=== PATIENT | male | born 1970 | race Two or more races ===

== ENCOUNTER 2018-11-09 13:08 | Inpatient (IN) | payer OTHER ==
[2018-11-09 13:49] VITALS: BMI 28.6
--- NOTE | 2018-11-09 21:19 | HP ---
CIWA Score Nausea/Vomitin (Vomitimg x 3) Muscle Tremors: 4-Moderate,w/Arms Extend Anxiety: 3 Agitation: 3 Paroxysmal Sweats: 3 Orientation: 1-Uncertain about Date Tacttile Disturbances: 0-None Auditory Disturbances: 0-None Visual Disturbances: 0-None Headache: 3-Moderate CIWA-Ar Total Score: 20 - Admission Criteria OASAS Guidelines: Admission for Medically Managed Detox: Requires at least one of the followin. CIWA greater than 12 2. Seizures within the past 24 hours 3. Delirium tremens within the past 24 hours 4. Hallucinations within the past 24 hours 5. Acute intervention needed for co occurring medical disorder 6. Acute intervention needed for co occurring psychiatric disorder 7. Severe withdrawal that cannot be handled at a lower level of care (continued vomiting, continued diarrhea, abnormal vital signs) requiring intravenous medication and/or fluids 8. Admission [facility] Chief Complaint: Alcohol withdrawal symptoms Allergies/Adverse Reactions: Allergies Allergy/AdvReac Type Severity Reaction Status Date / Time Fish Containing Products Allergy Verified 11/09/18 19:05 mayonnaise Allergy Verified 11/09/18 19:05 peanut Allergy Verified 11/09/18 19:05 turkey Allergy Verified 11/09/18 19:05 History of Present Illness: 48 years old male with a long history of alcohol dependence is seeking admission to detox. Patient has been to previous detox at [facility] and reports insignificant period of sobriety. He has medical history of hypertension, anxiety and depression. He denies suicide attempt and suicidal ideation at this time. His JENNI was 0.325 and rechecked at 9.12PM and is now 0.150. Patient reports feeling dizzy after vomiting. Fall and safety precaution initiated. Exam Limitations: No Limitations - Ebola screening Have you traveled outside of the country in the last 21 days: No Have you had contact with anyone from an Ebola affected area: No Have you been sick,other than usual withdrawal symptoms: No Do you have a fever: No - Review of Systems Constitutional: Chills, Loss of Appetite, Malaise, Changes in sleep EENT: reports: Sinus Pressure Respiratory: reports: No Symptoms reported Cardiac: reports: No Symptoms Reported GI: reports: Nausea, Poor Appetite, Poor Fluid Intake, Vomiting (x 3) : reports: No Symptoms Reported Musculoskeletal: reports: Joint Pain Integumentary: reports: Dryness, Flushing Neuro: reports: Headache, Tremors Endocrine: reports: Flushing Hematology: reports: No Symptoms Reported Psychiatric: reports: Anxious, Depressed Other Systems: Reviewed and Negative Patient History - Patient Medical History Hx Anemia: No Hx Asthma: No Hx Chronic Obstructive Pulmonary Disease (COPD): No Hx Cancer: No Hx Cardiac Disorders: No Hx Congestive Heart Failure: No Hx Hypertension: Yes (Amlodipine) Hx Hypercholesterolemia: No Hx Pacemaker: No HX Cerebrovascular Accident: No Hx Seizures: No Hx Diabetes: No Hx Gastrointestinal Disorders: No Hx Genitourinary Disorders: No Hx Sexually Transmitted Disorders: No Hx Renal Disease (ESRD): No Hx Thyroid Disease: No Hx Human Immunodeficiency Virus (HIV): No (Negative) Hx Depression: Yes (Not on medication) Hx Suicide Attempt: No (Denies suicidal ideation at this time) Hx Schizophrenia: No Other Medical History: ANXIETY _ Not on medication - Patient Surgical History Past Surgical History: No Hx Neurologic Surgery: No Hx Cataract Extraction: No Hx Cardiac Surgery: No Hx Lung Surgery: No Hx Breast Surgery: No Hx Breast Biopsy: No Hx Abdominal Surgery: No Hx Appendectomy: No Hx Cholecystectomy: No Hx Genitourinary Surgery: No Hx Section: No Hx Orthopedic Surgery: No Anesthesia Reaction: No - PPD History Previous Implant?: Yes Documented Results: Negative w/o proof Implanted On Prior R Admission?: No PPD to be Administered?: Yes - Reproductive History Patient is a Female of Child Bearing Age (11 -55 yrs old): No (MALE) - Smoking Cessation Smoking history: Current every day smoker Have you smoked in the past 12 months: Yes Aproximately how many cigarettes per day: 8 Hx Chewing Tobacco Use: No Initiated information on smoking cessation: Yes 'Breaking Loose' booklet given: 11/09/18 - Substance & Tx. History Hx Alcohol Use: Yes Hx Substance Use: No Substance Use Type: Alcohol Hx Substance Use Treatment: Yes ([facility]) - Substances Abused Alcohol Route: Oral Frequency: Daily Amount used: liquor- 5 pints Age of first use: 27 Date of Last Use: 11/09/18 Family Disease History - Family Disease History Family History: Denies Admission Physical Exam BHS - Vital Signs Vital Signs: Vital Signs - 24 hr 11/09/18 13:47 Temperature 97.4 F L Pulse Rate 110 H Respiratory 20 Rate Blood Pressure 124/72 - Physical General Appearance: Yes: Moderate Distress, Sweating, Anxious HEENTM: Yes: Nasal Congestion Respiratory: Yes: Lungs Clear, No Respiratory Distress Neck: Yes: Supple Breast: Yes: Breast Exam Deferred Cardiology: Yes: Tachycardia Abdominal: Yes: Normal Bowel Sounds Genitourinary: Yes: Within Normal Limits Back: Yes: Normal Inspection Musculoskeletal: Yes: Within Normal Limits Extremities: Yes: Tremors Neurological: Yes: Within Normal Limits Integumentary: Yes: Warm Lymphatic: Yes: Within Normal Limits - Diagnostic (1) Alcohol dependence with uncomplicated withdrawal Current Visit: Yes Status: Chronic (2) Hypertension Current Visit: Yes Status: Chronic Qualifiers: Hypertension type: essential hypertension Qualified Code(s): I10 - Essential (primary) hypertension (3) Depression Current Visit: Yes Status: Chronic Qualifiers: Depression Type: unspecified Qualified Code(s): F32.9 - Major depressive disorder, single episode, unspecified (4) Anxiety Current Visit: Yes Status: Chronic (5) Nicotine dependence Current Visit: Yes Status: Chronic Qualifiers: Nicotine product type: cigarettes Substance use status: uncomplicated Qualified Code(s): F17.210 - Nicotine dependence, cigarettes, uncomplicated Cleared for Admission [facility] - Detox or Rehab [facility] Level of Care: Medically Managed Detox Regimen/Protocol: Librium [facility] Breath Alcohol Content Breath Alcohol Content: 0.325 Urine Drug Screen - Results Drug Screen Negative: No Urine Drug Screen Results: BZO-Benzodiazepines Inpatient Rehab Admission - Rehab Decision to Admit Inpatient rehab admission?: No
[2018-11-09] MEDS ORDERED: MAGNESIUM HYDROX 2400MG/30ML ORAL SUSPENSION 30 ML CUP PO PRN (21:29)
[2018-11-09] MEDS ORDERED: P-EPHED 60MG/TRIPROLIDI 2.5MG TABLET PO PRN (21:29)
[2018-11-09] MEDS ORDERED: IBUPROFEN 400 MG TABLET (FP) PO PRN (21:29)
[2018-11-09] MEDS ORDERED: NICOTINE POLACRILEX 2 MG GUM BC PRN (21:29)
[2018-11-09] MEDS ORDERED: MENTHOL/PHENOL 1 EACH UD MM PRN (21:29)
[2018-11-09] MEDS ORDERED: MAG HYDROX/AL HYDROX/SIMETH 30 ML UNIT-DOSE CUP PO PRN (21:29)
[2018-11-09] MEDS ORDERED: guaiFENesin/D-METHORPHAN HB 10 ML UNIT-DOSE CUPS PO PRN (21:29)
[2018-11-09] MEDS ORDERED: MAGNESIUM CITRATE 300 ML BOTTLE PO PRN (21:29)
[2018-11-09] MEDS ORDERED: ACETAMINOPHEN 325 MG TABLET (FP) PO PRN (21:29)
[2018-11-09] MEDS ORDERED: LOPERAMIDE HCL 2 MG CAPSULE PO PRN (21:29)
[2018-11-09] MEDS: THIAMINE HCL 100 MG TABLET (FP) PO SCH (22:40)
[2018-11-09] MEDS: chlordiazePOXIDE HCL 25 MG CAPSULE PO SCH (22:40)
[2018-11-09] MEDS: MELATONIN 5 MG TABLETS PO PRN (22:42)
[2018-11-10] MEDS: chlordiazePOXIDE HCL 25 MG CAPSULE PO PRN ×2 (02:35→12:42)
[2018-11-10] MEDS: chlordiazePOXIDE HCL 25 MG CAPSULE PO SCH ×4 (06:24→22:41)
[2018-11-10] MEDS: PRENATAL VITAMINS W/ FOLIC ACID TABLET (FP) PO SCH (10:26)
[2018-11-10] MEDS: amLODIPine BESYLATE 10 MG TABLET (FP) PO SCH (10:26)
[2018-11-10] MEDS: NICOTINE 14 MG/24 HOURS TOPICAL PATCH TD SCH (10:26)
--- NOTE | 2018-11-10 10:29 | PN ---
S CIWA - CIWA Score Nausea/Vomitin Muscle Tremors: 3 Anxiety: 2 Agitation: 2 Paroxysmal Sweats: 3 Orientation: 0-Oriented Tacttile Disturbances: 0-None Auditory Disturbances: 0-None Visual Disturbances: 0-None Headache: 0-None Present CIWA-Ar Total Score: 15 BHS Progress Note (SOAP) Subjective: sweats vomiting sleep interruption Objective: 11/10/18 10:30 A & O x 3 vomit noted in garbage can Vital Signs Temperature 98.2 F 11/10/18 09:35 Pulse Rate 84 11/10/18 09:35 Respiratory Rate 18 11/10/18 09:35 Blood Pressure 150/95 11/10/18 09:35 O2 Sat by Pulse Oximetry (%) Labs results pending Assessment: 11/10/18 10:32 withdrawal sx Plan: continue detox [facility] for vomiting
[2018-11-10 10:42] LABS: ALBUMIN 3.2 g/dl (3.4-5.0); ALK PHOS 101 U/L (45-117); ANION GAP 10 MMOL/L (8-16); BILIRUBIN,TOTAL 1.3 mg/dL (0.2-1); BLOOD UREA NITROGEN 6 mg/dL (7-18); CALCIUM 9.1 mg/dL (8.5-10.1); CHLORIDE 103 mmol/L (98-107); CO2 30 mmol/L (21-32); CREATININE 0.6 mg/dL (0.55-1.3); GLUCOSE,RANDOM 74 mg/dL (74-106); POTASSIUM 3.4 mmol/L (3.5-5.1); SGOT/AST 52 U/L (15-37); SGPT/ALT 39 U/L (13-61); SODIUM 142 mmol/L (136-145); TOT PROT 5.9 g/dl (6.4-8.2)
[2018-11-10 10:47] LABS: HEMATOCRIT 40.5 % (35.4-49); MCH 32.3 pg (25.7-33.7); MCHC 34.6 g/dl (32.0-35.9); MEAN CELL VOLUME 93.5 fl (80-96); MEAN PLT VOLUME 8.8 fl (7.5-11.1); PLATELET COUNT 290 K/MM3 (134-434); RBC 4.33 M/mm3 (4.00-5.60); RDW 13.8 % (11.9-15.9); WHITE BLOOD COUNT 3.2 K/mm3 (4.0-10.0)
[2018-11-10] MEDS ORDERED: TRIMETHOBENZAMIDE HCL 200MG/2ML INJ IM ONE (11:00)
--- NOTE | 2018-11-10 12:39 | CONSULT ---
[facility] Psychiatric Consult - Data Date of interview: 11/10/18 Admission source: [facility] Identifying data: First admission to [facility] for this 48 y/o AA male self- referred for detoxification treatment (alcohol). Evaluated at [address] [place] [address]. Patient is single, a father of five, domiciled unemployed and supported on SSI benefits. Substance Abuse History: Confirmed by the patient in this interview. Details in current [facility] report as follows : Smoking history: Current every day smoker. Have you smoked in the past 12 months: Yes. Aproximately how many cigarettes per day: 8. Hx Chewing Tobacco Use: No. Initiated information on smoking cessation: Yes. 'Breaking Loose' booklet given: 11/09/18. - Substance & Tx. History. Hx Alcohol Use: Yes. Hx Substance Use: No. Substance Use Type: Alcohol. Hx Substance Use Treatment: Yes ([facility]). - Substances Abused. Alcohol. Route: Oral. Frequency: Daily. Amount used: liquor- 5 pints. Age of first use: 27. Date of Last Use: 11/09/18 Medical History: Hypertension. Psychiatric History: No reported history of psychiatric hospitalizations. Patient declares current treatment with buspirone, trazodone, fluoxetine and clonazepam. Diagnosis : bipolar disorder. Mr Evans sees a psychiatrist at the [facility] in the [place]. Denies history of suicide attempts. Physical/Sexual Abuse/Trauma History: Patient denies. Additional Comment: Urine Drug Screen Results: BZO-Benzodiazepines. Noted. Mental Status Exam - Mental Status Exam Alert and Oriented to: Time, Place, Person Cognitive Function: Good Patient Appearance: Well Groomed Mood: Nervous, Withdrawn, Anxious Affect: Mood Congruent, Constricted Patient Behavior: Fatigued, Cooperative Speech Pattern: Clear, Appropriate Voice Loudness: Normal Thought Process: Intact, Goal Oriented Thought Disorder: Not Present Hallucinations: Denies Suicidal Ideation: Denies Homicidal Ideation: Denies Insight/Judgement: Poor Sleep: Poorly, Difficulty falling asleep Appetite: Good Muscle strength/Tone: Normal Gait/Station: Normal Psychiatric Findings - Problem List ([place] 1, 2,3) (1) Alcohol dependence with uncomplicated withdrawal Current Visit: Yes Status: Acute (2) Nicotine dependence Current Visit: Yes Status: Chronic Qualifiers: Nicotine product type: cigarettes Substance use status: uncomplicated Qualified Code(s): F17.210 - Nicotine dependence, cigarettes, uncomplicated (3) Substance induced mood disorder Current Visit: Yes Status: Chronic (4) History of bipolar disorder Current Visit: Yes Status: Chronic (5) Insomnia Current Visit: Yes Status: Chronic - Initial Treatment Plan Initial Treatment Plan: Psychoeducation. Sleep hygiene. Detoxification in progress. Support. AA meetings. Medications (patient's request) : trazodone 100 mg po hs + prozac 20 mg po daily + buspirone 15 mg po bid. Side effects/ benefits of each drug are discussed with the patient. He is made aware of potential for suicidal ideation, priapism, sedation and sexual dysfunction (in particular). Mr Evans is in agreement with this plan of care. Observation.
[2018-11-10] MEDS: THIAMINE HCL 100 MG TABLET (FP) PO SCH (22:41)
[2018-11-10] MEDS: traZODone HCL 50 MG TABLET (FP) PO SCH (22:42)
[2018-11-10] MEDS: MELATONIN 5 MG TABLETS PO PRN (22:42)
[2018-11-11] MEDS: chlordiazePOXIDE HCL 25 MG CAPSULE PO SCH ×3 (06:00→17:33)
[2018-11-11] MEDS: amLODIPine BESYLATE 10 MG TABLET (FP) PO SCH (10:24)
[2018-11-11] MEDS: NICOTINE 14 MG/24 HOURS TOPICAL PATCH TD SCH (10:24)
[2018-11-11] MEDS: FLUoxetine HCL 20 MG CAPSULE (FP) PO SCH (10:24)
[2018-11-11] MEDS: PRENATAL VITAMINS W/ FOLIC ACID TABLET (FP) PO SCH (10:24)
[2018-11-11] MEDS: chlordiazePOXIDE HCL 25 MG CAPSULE PO PRN (14:18)
--- NOTE | 2018-11-11 15:19 | PN ---
[facility] CIWA - CIWA Score Nausea/Vomitin Muscle Tremors: 3 Anxiety: 3 Agitation: 3 Paroxysmal Sweats: 3 Orientation: 0-Oriented Tacttile Disturbances: 0-None Auditory Disturbances: 0-None Visual Disturbances: 0-None Headache: 0-None Present CIWA-Ar Total Score: 14 BHS Progress Note (SOAP) Subjective: Anxious, interrupted sleep, tremor Objective: 11/11/18 15:16 Last Vital Signs Temp Pulse Resp BP Pulse Ox 98.2 F 80 16 132/90 11/11/18 10:00 11/11/18 10:00 11/11/18 10:00 11/11/18 10:00 Laboratory Tests 11/10/18 11/10/18 11/10/18 07:50 07:50 07:50 WBC 3.2 L RBC 4.33 Hgb 14.0 Hct 40.5 MCV 93.5 MCH 32.3 MCHC 34.6 RDW 13.8 Plt Count 290 MPV 8.8 Sodium 142 Potassium 3.4 L Chloride 103 Carbon Dioxide 30 Anion Gap 10 BUN 6 L Creatinine 0.6 Creat Clearance w eGFR > 60 Random Glucose 74 Calcium 9.1 Total Bilirubin 1.3 H AST 52 H ALT 39 Alkaline Phosphatase 101 Total Protein 5.9 L Albumin 3.2 L RPR Titer HIV 1&2 Antibody Screen Negative HIV P24 Antigen Negative 11/10/18 07:50 WBC RBC Hgb Hct MCV MCH MCHC RDW Plt Count MPV Sodium Potassium Chloride Carbon Dioxide Anion Gap BUN Creatinine Creat Clearance w eGFR Random Glucose Calcium Total Bilirubin AST ALT Alkaline Phosphatase Total Protein Albumin RPR Titer Nonreactive HIV 1&2 Antibody Screen HIV P24 Antigen Labs reviewed: K 3.2, total bilirubin 1.3 Assessment: 11/11/18 15:17 Withdrawal symptoms Noted with hypokalemia and elevated total bilirubin Plan: Continue detox Encouraged PO water hydration Hypokalemia: K Dur 40 Meq PO x 2 doses (at least 4 hours apart), repeat serum K + level in Am Elevated total bilirubin: most likely due to alcoholism, repeat total bilirubin level in AM
[2018-11-11] MEDS ORDERED: POTASSIUM CHLORIDE TABS 20 MEQ TABLET.ER (FP) PO ONE ×3 (15:22→22:00)
[2018-11-11] MEDS: traZODone HCL 50 MG TABLET (FP) PO SCH (22:33)
[2018-11-11] MEDS: THIAMINE HCL 100 MG TABLET (FP) PO SCH (22:33)
[2018-11-11] MEDS: chlordiazePOXIDE 5 MG CAPSULE PO SCH (22:34)
[2018-11-11] MEDS: MELATONIN 5 MG TABLETS PO PRN (22:34)
[2018-11-12] MEDS: chlordiazePOXIDE 5 MG CAPSULE PO SCH ×3 (07:36→17:29)
[2018-11-12 09:55] LABS: BILIRUBIN,TOTAL 0.7 mg/dL (0.2-1)
[2018-11-12] MEDS: PRENATAL VITAMINS W/ FOLIC ACID TABLET (FP) PO SCH (10:06)
[2018-11-12] MEDS: NICOTINE 14 MG/24 HOURS TOPICAL PATCH TD SCH (10:06)
[2018-11-12] MEDS: FLUoxetine HCL 20 MG CAPSULE (FP) PO SCH (10:06)
[2018-11-12] MEDS: amLODIPine BESYLATE 10 MG TABLET (FP) PO SCH (10:06)
--- NOTE | 2018-11-12 11:10 | PN ---
BHS Progress Note (SOAP) Subjective: tired sweats Objective: 11/12/18 11:10 Vital Signs Temperature 97.7 F 11/12/18 09:31 Pulse Rate 77 11/12/18 09:31 Respiratory Rate 18 11/12/18 09:31 Blood Pressure 127/82 11/12/18 09:31 O2 Sat by Pulse Oximetry (%) aaox3 ambulating no acute distress Assessment: 11/12/18 11:10 mild withdrawal sx Plan: continue detox increase fluids d/c in am
[2018-11-12] MEDS ORDERED: COLLOIDAL OATMEAL 1 BAR EACH TP PRN (20:58)
[2018-11-12] MEDS: traZODone HCL 50 MG TABLET (FP) PO SCH (22:23)
[2018-11-12] MEDS: chlordiazePOXIDE HCL 10 MG CAPSULE PO SCH (22:23)
[2018-11-12] MEDS: THIAMINE HCL 100 MG TABLET (FP) PO SCH (22:26)
[2018-11-12] MEDS: MELATONIN 5 MG TABLETS PO PRN (22:26)
[2018-11-13] MEDS: chlordiazePOXIDE HCL 10 MG CAPSULE PO SCH (05:53)
[2018-11-13 06:15] VITALS: BP 99/63; PULSE 72; TEMP 97.2
--- NOTE | 2018-11-13 09:07 | DS ---
[facility] Detox Discharge Summary Admission Date: 11/09/18 Discharge Date: 11/13/18 - History Present History: Alcohol Dependence - Physical Exam Results Vital Signs: Vital Signs Temperature 97.2 F L 11/13/18 06:00 Pulse Rate 72 11/13/18 06:00 Respiratory Rate 18 11/13/18 06:00 Blood Pressure 99/63 11/13/18 06:00 O2 Sat by Pulse Oximetry (%) - Treatment Hospital Course: Detox Protocol Followed, Detoxed Safely, Responded well, Discharged Condition Good, Rehab Referral Accepted - Medication Discharge Medications: Ambulatory Orders Amlodipine Besylate [Norvasc -] 10 mg PO DAILY 11/09/18 Buspirone HCl [Buspar -] 15 mg PO BID 11/09/18 Fluoxetine HCl [Prozac -] 20 mg PO DAILY 11/09/18 Trazodone HCl 150 mg PO HS 11/09/18 - Diagnosis (1) Alcohol dependence with uncomplicated withdrawal Current Visit: Yes Status: Chronic (2) Anxiety Current Visit: Yes Status: Chronic (3) Depression Current Visit: Yes Status: Chronic Qualifiers: Depression Type: unspecified Qualified Code(s): F32.9 - Major depressive disorder, single episode, unspecified (4) History of bipolar disorder Current Visit: Yes Status: Chronic (5) Hypertension Current Visit: Yes Status: Chronic Qualifiers: Hypertension type: essential hypertension Qualified Code(s): I10 - Essential (primary) hypertension (6) Insomnia Current Visit: Yes Status: Chronic (7) Nicotine dependence Current Visit: Yes Status: Chronic Qualifiers: Nicotine product type: cigarettes Substance use status: uncomplicated Qualified Code(s): F17.210 - Nicotine dependence, cigarettes, uncomplicated (8) Substance induced mood disorder Current Visit: Yes Status: Chronic - AMA Did Patient Leave Against Medical Advice: No (pt going to his PCP then will f/u inpatient rehab at [facility])
--- NOTE | 2018-11-13 14:01 | EKG ---
Test Reason : Blood Pressure : / mmHG Vent. Rate : 087 BPM Atrial Rate : 087 BPM P-R Int : 168 ms QRS Dur : 080 ms QT Int : 368 ms P-R-T Axes : 067 058 059 degrees QTc Int : 442 ms NORMAL SINUS RHYTHM NORMAL ECG NO PREVIOUS ECGS AVAILABLE Confirmed by MD Nathaniel, Earnest ([id number]) on 11/13/2018 2:01:06 PM Referred By: Confirmed By:Earnest Armstrong MD
== END 2018-11-13 09:19 | disposition home or self-care (01) | DRG 775 ==
LOC: YASAS 13:08 → Y6N 21:37
PROVIDERS: ADMIT Surgery; ATTEND Surgery
PROC: HZ2ZZZZ Detoxification Services for Substance Abuse Treatment (ICD-10-PCS; principal; 2018-11-09)
DX: F10.230 Alcohol dependence with withdrawal, uncomplicated (principal); F17.210 Nicotine dependence, cigarettes, uncomplicated; F31.9 Bipolar disorder, unspecified; F19.24 Other psychoactive substance dependence with psychoactive substance-induced mood disorder; F41.8 Other specified anxiety disorders; F32.9 Major depressive disorder, single episode, unspecified; G47.00 Insomnia, unspecified; I10 Essential (primary) hypertension; E87.6 Hypokalemia; R74.8 Abnormal levels of other serum enzymes; Z91.013 Allergy to seafood; Z91.018 Allergy to other foods
CPT/HCPCS: 36415; 80053; 82247; 84132; 85027; 86593; 87389; 93005; 93010

== ENCOUNTER 2019-07-29 16:31 | Inpatient (IN) | payer OTHER ==
[2019-07-29 17:47] VITALS: BMI 26.2
--- NOTE | 2019-07-29 19:35 | HP ---
CIWA Score Nausea/Vomitin-No Nausea/No Vomiting Muscle Tremors: None Anxiety: 3 Agitation: 3 Paroxysmal Sweats: No Perspiration Orientation: 0-Oriented Tacttile Disturbances: 0-None Auditory Disturbances: 0-None Visual Disturbances: 0-None Headache: 0-None Present CIWA-Ar Total Score: 6 - Admission Criteria OASAS Guidelines: Admission for Medically Managed Detox: Requires at least one of the followin. CIWA greater than 12 2. Seizures within the past 24 hours 3. Delirium tremens within the past 24 hours 4. Hallucinations within the past 24 hours 5. Acute intervention needed for co occurring medical disorder 6. Acute intervention needed for co occurring psychiatric disorder 7. Severe withdrawal that cannot be handled at a lower level of care (continued vomiting, continued diarrhea, abnormal vital signs) requiring intravenous medication and/or fluids 8. Pt will be admitted for acute intervention needed for co-occuring psych disorder To see psych in am Will hold off klonipin as pt to get librium, for psych to see for resumption of psych meds Admitting History and Physical - Admission Chief Complaint: Detox ETOH History of Present Illness: Pt with PMHx of HTN, afib 2018, s/p cardioversion, depression, anxiety, bipolar disease follows a psychiatrist here for detox from alcohol. Last detox 11/27 in [facility]. Relapsed after quarrels with or after . Unable to stop after first drink . Sober for 5 months -2019. started drinking bad 10years after succesion of deaths, grandpa, mother, uncles x2, (8years) then grandmother (7 years). Attributed to depression and being off his med. Has been with same girl for 11 years. Pt feels depressed now like he wants to cry, not suicidal or homicidal. Last used psych meds 6am today. ETOH Last drink at 1pm this afternoon. Drank liquor, yesterday and 1 40ounce of beer Started at 29 Drinks daily up 1 gallon [place] No seizure hx Blackouts with fall 2 weeks ago with bleeding from L ear and scrapes, does not remember what happened No problem with law In Shelter for 1991, for stealing [employer] food for 1 year Nicotine 5 cigs per day for 30 years Needs patch, gum Pt on klonipin, buspar, trazodone, mirtazipine from psychiatrist On amlodipine, HCTZ, metoprolol (for afib) Lhernia repair- 3 months, Perforated L ear drum s/p trauma, on ear drum ( had sx in [place]-2 weeks ago) I stop shows tramadol 30 days prescribed 07/01/19 Klonipin 15 days oprescribed FHx Mother alcohol dependent- had breast cancer but had been on tx for alcohol, 58year, Passed 9 years Kids-3, 6, 19, 27, in touch with them, kids live with their mothers Social Hx; Was living with , until 2 weeks ago when he fell down Worked as [employer] until 20 years Has not worked in 15 years because of mental health issues -anxiety/PTSD/ depression, on SSIs was nervous around people All: to fish, herndon, turkey, peanuts History Source: Patient, Medical Record Limitations to Obtaining History: No Limitations - Past Medical History Cardiovascular: Yes: AFIB, HTN Psych: Yes: Anxiety, Bipolar, Depression - Smoking History Smoking history: Current every day smoker Have you smoked in the past 12 months: Yes Aproximately how many cigarettes per day: 8 - Alcohol/Substance Use Hx Alcohol Use: Yes - Social History Usual Living Arrangement: Yes: With Spouse, Other (Kicked out by 2 weeks, now with sister) Do you think of yourself as: Straight/Heterosexual ADL: Independent History of Recent Travel: No Admission [facility] Allergies/Adverse Reactions: Allergies Allergy/AdvReac Type Severity Reaction Status Date / Time Fish Containing Products Allergy Verified 07/29/19 17:29 mayonnaise Allergy Verified 07/29/19 17:29 peanut Allergy Verified 07/29/19 17:29 turkey Allergy Verified 07/29/19 17:29 - Ebola screening Have you traveled outside of the country in the last 21 days: No (N) Have you had contact with anyone from an Ebola affected area: No Do you have a fever: No - Review of Systems Constitutional: No Symptoms Reported EENT: reports: No Symptoms Reported Respiratory: reports: No Symptoms reported Cardiac: reports: No Symptoms Reported GI: reports: No Symptoms Reported : reports: No Symptoms Reported Musculoskeletal: reports: No Symptoms Reported Integumentary: reports: No Symptoms Reported Neuro: reports: No Symptoms reported Endocrine: reports: No Symptoms Reported Hematology: reports: No Symptoms Reported Psychiatric: reports: No Sypmtoms Reported Patient History - Patient Medical History Hx Anemia: No Hx Asthma: No Hx Chronic Obstructive Pulmonary Disease (COPD): No Hx Cancer: No Hx Cardiac Disorders: No Hx Congestive Heart Failure: No Hx Hypertension: Yes (Amlodipine) Hx Hypercholesterolemia: No Hx Pacemaker: No HX Cerebrovascular Accident: No Hx Seizures: No Hx Dementia: No Hx Diabetes: No Hx Gastrointestinal Disorders: No Hx Liver Disease: No Hx Genitourinary Disorders: No Hx Sexually Transmitted Disorders: No Hx Renal Disease (ESRD): No Hx Thyroid Disease: No Hx Human Immunodeficiency Virus (HIV): No (Negative) Hx Depression: Yes (Not on medication) Hx Suicide Attempt: No (Denies suicidal ideation at this time) Hx Schizophrenia: No - Patient Surgical History Past Surgical History: No Hx Neurologic Surgery: No Hx Cataract Extraction: No Hx Cardiac Surgery: No Hx Lung Surgery: No Hx Breast Surgery: No Hx Breast Biopsy: No Hx Abdominal Surgery: No Hx Appendectomy: No Hx Cholecystectomy: No Hx Genitourinary Surgery: No Hx Section: No Hx Orthopedic Surgery: No Other Surgical History: Repair of L perforated tympanum -Jul 2019 Anesthesia Reaction: No - PPD History Previous Implant?: Yes Date: 11/11/18 PPD to be Administered?: No - Reproductive History Patient is a Female of Child Bearing Age (11 -55 yrs old): No - Smoking Cessation Smoking history: Current every day smoker Have you smoked in the past 12 months: Yes Aproximately how many cigarettes per day: 8 Hx Chewing Tobacco Use: No Initiated information on smoking cessation: Yes 'Breaking Loose' booklet given: 07/29/19 - Substance & Tx. History Hx Alcohol Use: Yes Hx Substance Use: No Hx Substance Use Treatment: Yes - Substances abused Alcohol Substance route: Oral Frequency: Daily Amount used: 1/2 gallon of RADEUM ice tEA Age of first use: 27 Date of last use: 07/29/19 Admission Physical Exam BHS - Vital Signs Vital Signs: Vital Signs - 24 hr 07/29/19 17:40 Temperature 99.7 F H Pulse Rate 90 Respiratory 18 Rate Blood Pressure 138/96 - Physical General Appearance: Yes: Anxious HEENTM: Yes: Within Normal Limits Respiratory: Yes: Within Normal Limits Neck: Yes: Within Normal Limits Breast: Yes: Breast Exam Deferred Cardiology: Yes: Within Normal Limits Abdominal: Yes: Within Normal Limits Genitourinary: Yes: Within Normal Limits Back: Yes: Within Normal Limits Musculoskeletal: Yes: Within Normal Limits Extremities: Yes: Within Normal Limits Neurological: Yes: Within Normal Limits Integumentary: Yes: Within Normal Limits Lymphatic: Yes: Within Normal Limits - Diagnostic (1) Alcohol dependence with uncomplicated withdrawal Current Visit: No Status: Chronic Breathalyzer - Breathalyzer Breathalyzer: 0 Urine Drug Screen - Test Device Lot number: [id number] Expiration date: 04/10/21 - Results Drug screen NEGATIVE: Yes Inpatient Rehab Admission - Rehab Decision to Admit Inpatient rehab admission?: No
[2019-07-29] MEDS ORDERED: METHOCARBAMOL 500 MG TABLET PO PRN (19:49)
[2019-07-29] MEDS ORDERED: ACETAMINOPHEN 325 MG TABLET (FP) PO PRN ×2 (19:49)
[2019-07-29] MEDS ORDERED: MAGNESIUM CITRATE 300 ML BOTTLE PO PRN (19:49)
[2019-07-29] MEDS ORDERED: BISMUTH SUBSALICYLATE 524 MG/30 ML UD PO PRN (19:49)
[2019-07-29] MEDS ORDERED: MENTHOL/PHENOL 1 EACH UD MM PRN (19:49)
[2019-07-29] MEDS ORDERED: IBUPROFEN 400 MG TABLET (FP) PO PRN (19:49)
[2019-07-29] MEDS ORDERED: MAGNESIUM HYDROX 2400MG/30ML ORAL SUSPENSION 30 ML CUP PO PRN (19:49)
[2019-07-29] MEDS ORDERED: MAG HYDROX/AL HYDROX/SIMETH 30 ML UNIT-DOSE CUP PO PRN (19:49)
[2019-07-29] MEDS ORDERED: NICOTINE POLACRILEX 2 MG GUM BUC PRN (19:49)
[2019-07-29] MEDS: THIAMINE HCL 100 MG TABLET (FP) PO SCH (21:29)
[2019-07-29] MEDS: chlordiazePOXIDE HCL 25 MG CAPSULE PO SCH (21:29)
[2019-07-29] MEDS: MELATONIN 5 MG TABLETS PO PRN (21:30)
[2019-07-30] MEDS: chlordiazePOXIDE HCL 10 MG CAPSULE PO PRN ×2 (03:29→10:27)
[2019-07-30 09:50] LABS: HEMATOCRIT 45.2 % (35.4-49); HEMOGLOBIN 15.1 GM/dL (11.7-16.9); MCH 31.8 pg (25.7-33.7); MCHC 33.4 g/dl (32.0-35.9); MEAN CELL VOLUME 95.2 fl (80-96); MEAN PLT VOLUME 9.2 fl (7.5-11.1); PLATELET COUNT 206 K/MM3 (134-434); RBC 4.75 M/mm3 (4.00-5.60); RDW 14.9 % (11.9-15.9); WHITE BLOOD COUNT 3.5 K/mm3 (4.0-10.0)
[2019-07-30 10:17] LABS: ALBUMIN 3.4 g/dl (3.4-5.0); BILIRUBIN,TOTAL 0.9 mg/dL (0.2-1); CALCIUM 9.1 mg/dL (8.5-10.1); CREATININE 0.7 mg/dL (0.55-1.3); POTASSIUM 3.8 mmol/L (3.5-5.1); TOT PROT 6.1 g/dl (6.4-8.2)
[2019-07-30] MEDS: amLODIPine BESYLATE 10 MG TABLET (FP) PO SCH (10:27)
[2019-07-30] MEDS: PRENATAL VITAMINS W/ FOLIC ACID TABLET (FP) PO SCH (10:27)
[2019-07-30] MEDS: NICOTINE 7 MG/24 HOURS TOPICAL PATCH TD SCH (10:27)
--- NOTE | 2019-07-30 11:18 | CONSULT ---
[facility] Psychiatric Consult - Data Date of interview: 07/30/19 Admission source: [facility] Identifying data: Readmission to [facility] for this 49 y/o AA male self- referred for detoxification treatment (alcohol). Interviewed at [address] [place] [address]. Patient is single, a father of five, domiciled unemployed and supported on SSI benefits. Substance Abuse History: Discussed with patient. Details in current [facility] report as follows : Smoking history: Current every day smoker. Have you smoked in the past 12 months: Yes. Aproximately how many cigarettes per day: 8. Hx Chewing Tobacco Use: No. Initiated information on smoking cessation: Yes. 'Breaking Loose' booklet given: 07/29/19. - Substance & Tx. History. Hx Alcohol Use: Yes. Hx Substance Use: No. Hx Substance Use Treatment: Yes. - Substances abused. Alcohol. Substance route: Oral. Frequency: Daily. Amount used: 1/ 2 gallon of [employer] ice tEA. Age of first use: 27. Date of last use: 07/29 Medical History: Medical profile is remarkable for hypertension, atrial fibrillation (cardioversion in 2018), recent history of perforated ear drum ( left) and reported antecedent of left inguinal herniorraphy. Psychiatric History: Patient denies history of psychiatric hospitalizations. Diagnosed with Bipolar Disorder, PTSD, Anxiety Disorder. Reportedly managed with mirtazapine, buspirone, trazodone, fluoxetine and clonazepam. Mr Evans sees a psychiatrist, Dr Aguilar, at [facility] in the [place]. Denies history of suicide attempts. Physical/Sexual Abuse/Trauma History: Not discussed. Patient declines. " It is in my records." Additional Comment: Negative toxicology. Mental Status Exam - Mental Status Exam Alert and Oriented to: Time, Place, Person Cognitive Function: Good Patient Appearance: Well Groomed Mood: Nervous, Anxious, Irritable Affect: Mood Congruent Patient Behavior: Fatigued, Cooperative (superficially cooperative) Speech Pattern: Clear Voice Loudness: Normal Thought Process: Intact, Goal Oriented Thought Disorder: Not Present Hallucinations: Denies Suicidal Ideation: Denies Homicidal Ideation: Denies Insight/Judgement: Poor Sleep: Poorly, Difficulty falling asleep Appetite: Good Muscle strength/Tone: Normal Gait/Station: Normal Psychiatric Findings - Problem List ([place] 1, 2,3) (1) Alcohol dependence with uncomplicated withdrawal Current Visit: Yes Status: Acute (2) Nicotine dependence Current Visit: Yes Status: Chronic Qualifiers: Nicotine product type: cigarettes Substance use status: uncomplicated Qualified Code(s): F17.210 - Nicotine dependence, cigarettes, uncomplicated (3) Substance induced mood disorder Current Visit: Yes Status: Chronic (4) History of bipolar disorder Current Visit: Yes Status: Chronic (5) Insomnia Current Visit: Yes Status: Chronic - Initial Treatment Plan Initial Treatment Plan: Psychoeducation. Sleep hygiene. Detoxification protocol (discussed with medical attending, Dr Harmon, in a conference with patient). AA meetings. MAT services : revisited with the patient. Medications : mirtazapine 15 mg po hs + prozac 20 mg po daily. Patient declines to resume trazodone. " I get bad dreams when I take that medications ". Side effects/ benefits of mirtazapine and prozac are discussed with the patient. Mr Evans is in agreement with this plan of care. Gave verbal consent to MD. Armijo.
[2019-07-30] MEDS ORDERED: LORazepam 1 MG TABLET PO PRN (11:39)
[2019-07-30] MEDS ORDERED: LIDOCAINE VISCOUS 2% ORAL/TOP 20 ML UNIT-DOSE CUP MM PRN (11:41)
--- NOTE | 2019-07-30 11:53 | PN ---
S CIWA - CIWA Score Nausea/Vomitin-Mild Nausea/No Vomiting Muscle Tremors: 2 Anxiety: 3 Agitation: 3 Paroxysmal Sweats: No Perspiration Orientation: 0-Oriented Tacttile Disturbances: 1-Very Mild Itch/Numbness Auditory Disturbances: 0-None Visual Disturbances: 0-None Headache: 2-Mild CIWA-Ar Total Score: 12 BHS Progress Note (SOAP) Subjective: alert,irritable,anxious,interrupted sleep,pain in the left ear,dry mouth, dehydrated,stated has been taking amxicillin 500 mgs po bid ,and ear drop for infection in the left ear for 4 days Objective: 07/30/19 11:48 Vital Signs Temperature 97.6 F 07/30/19 09:14 Pulse Rate 68 07/30/19 09:14 Respiratory Rate 20 07/30/19 09:14 Blood Pressure 125/82 07/30/19 09:14 O2 Sat by Pulse Oximetry (%) Laboratory Last Values WBC 3.5 K/mm3 (4.0-10.0) L 07/30/19 08:00 RBC 4.75 M/mm3 (4.00-5.60) 07/30/19 08:00 Hgb 15.1 GM/dL (11.7-16.9) 07/30/19 08:00 Hct 45.2 % (35.4-49) 07/30/19 08:00 MCV 95.2 fl (80-96) 07/30/19 08:00 MCH 31.8 pg (25.7-33.7) 07/30/19 08:00 MCHC 33.4 g/dl (32.0-35.9) 07/30/19 08:00 RDW 14.9 % (11.9-15.9) 07/30/19 08:00 Plt Count 206 K/MM3 (134-434) D 07/30/19 08:00 MPV 9.2 fl (7.5-11.1) 07/30/19 08:00 Sodium 140 mmol/L (136-145) 07/30/19 08:00 Potassium 3.8 mmol/L (3.5-5.1) 07/30/19 08:00 Chloride 101 mmol/L (98-107) 07/30/19 08:00 Carbon Dioxide 34 mmol/L (21-32) H 07/30/19 08:00 Anion Gap 5 MMOL/L (8-16) L 07/30/19 08:00 BUN 5.0 mg/dL (7-18) L 07/30/19 08:00 Creatinine 0.7 mg/dL (0.55-1.3) 07/30/19 08:00 Est GFR (CKD-EPI)AfAm 128.43 07/30/19 08:00 Est GFR (CKD-EPI)NonAf 110.81 07/30/19 08:00 Random Glucose 82 mg/dL (74-106) 07/30/19 08:00 Calcium 9.1 mg/dL (8.5-10.1) 07/30/19 08:00 Total Bilirubin 0.9 mg/dL (0.2-1) 07/30/19 08:00 AST 14 U/L (15-37) L 07/30/19 08:00 ALT 12 U/L (13-61) L 07/30/19 08:00 Alkaline Phosphatase 76 U/L (45-117) 07/30/19 08:00 Total Protein 6.1 g/dl (6.4-8.2) L 07/30/19 08:00 Albumin 3.4 g/dl (3.4-5.0) 07/30/19 08:00 RPR Titer Nonreactive (NONREACTIVE) 07/30/19 08:00 HIV 1&2 Antibody Screen Negative 07/30/19 08:00 HIV P24 Antigen Negative 07/30/19 08:00 Assessment: 07/30/19 11:49 withdrawal symptom Plan: continue detox ,patient did not want librium,regimen changed to ativan regimen, continue amoxillin 500 mgs po bid for 7 days,cortisporin max suspension left ear,fluid,xylocaine viscous prn,close monitoring
[2019-07-30] MEDS: AMOXICILLIN 500 MG CAPSULE (FP) PO SCH ×2 (12:33→22:41)
[2019-07-30] MEDS: hydrOXYzine PAMOATE 25 MG CAPSULE (FP) PO PRN (12:33)
[2019-07-30] MEDS: NEOMYCIN/POLYMYXN/HC OTIC SUSPENSION 10 ML BOTTLE AS SCH ×2 (12:34→17:46)
[2019-07-30] MEDS: LORazepam 2 MG TABLET PO SCH ×2 (17:45→22:41)
[2019-07-30] MEDS: MIRTAZAPINE 15 MG TABLET (FP) PO SCH (22:41)
[2019-07-30] MEDS: THIAMINE HCL 100 MG TABLET (FP) PO SCH (22:41)
[2019-07-31] MEDS ORDERED: chlordiazePOXIDE 5 MG CAPSULE PO SCH (05:00)
[2019-07-31] MEDS: LORazepam 2 MG TABLET PO SCH ×4 (06:30→22:10)
[2019-07-31] MEDS: chlordiazePOXIDE HCL 25 MG CAPSULE PO SCH (08:29)
[2019-07-31] MEDS: NEOMYCIN/POLYMYXN/HC OTIC SUSPENSION 10 ML BOTTLE AS SCH ×5 (08:31→23:07)
--- NOTE | 2019-07-31 09:44 | PN ---
[facility] CIWA - CIWA Score Nausea/Vomitin-Mild Nausea/No Vomiting Muscle Tremors: 2 Anxiety: 3 Agitation: 2 Paroxysmal Sweats: 2 Orientation: 0-Oriented Tacttile Disturbances: 1-Very Mild Itch/Numbness Auditory Disturbances: 0-None Visual Disturbances: 0-None Headache: 0-None Present CIWA-Ar Total Score: 11 S Progress Note (SOAP) Subjective: 49 years old male admitted on 07/29/19 for alcohol withdrawal sx management treated with ativan detox regimen ate breakfast feeling tired resting on bed limited conversation with staff Objective: 07/31/19 09:43 Vital Signs Temperature 97.1 F L 07/31/19 09:12 Pulse Rate 83 07/31/19 09:12 Respiratory Rate 18 07/31/19 09:12 Blood Pressure 122/87 07/31/19 09:12 O2 Sat by Pulse Oximetry (%) Laboratory Last Values WBC 3.5 K/mm3 (4.0-10.0) L 07/30/19 08:00 RBC 4.75 M/mm3 (4.00-5.60) 07/30/19 08:00 Hgb 15.1 GM/dL (11.7-16.9) 07/30/19 08:00 Hct 45.2 % (35.4-49) 07/30/19 08:00 MCV 95.2 fl (80-96) 07/30/19 08:00 MCH 31.8 pg (25.7-33.7) 07/30/19 08:00 MCHC 33.4 g/dl (32.0-35.9) 07/30/19 08:00 RDW 14.9 % (11.9-15.9) 07/30/19 08:00 Plt Count 206 K/MM3 (134-434) D 07/30/19 08:00 MPV 9.2 fl (7.5-11.1) 07/30/19 08:00 Sodium 140 mmol/L (136-145) 07/30/19 08:00 Potassium 3.8 mmol/L (3.5-5.1) 07/30/19 08:00 Chloride 101 mmol/L (98-107) 07/30/19 08:00 Carbon Dioxide 34 mmol/L (21-32) H 07/30/19 08:00 Anion Gap 5 MMOL/L (8-16) L 07/30/19 08:00 BUN 5.0 mg/dL (7-18) L 07/30/19 08:00 Creatinine 0.7 mg/dL (0.55-1.3) 07/30/19 08:00 Est GFR (CKD-EPI)AfAm 128.43 07/30/19 08:00 Est GFR (CKD-EPI)NonAf 110.81 07/30/19 08:00 Random Glucose 82 mg/dL (74-106) 07/30/19 08:00 Calcium 9.1 mg/dL (8.5-10.1) 07/30/19 08:00 Total Bilirubin 0.9 mg/dL (0.2-1) 07/30/19 08:00 AST 14 U/L (15-37) L 07/30/19 08:00 ALT 12 U/L (13-61) L 07/30/19 08:00 Alkaline Phosphatase 76 U/L (45-117) 07/30/19 08:00 Total Protein 6.1 g/dl (6.4-8.2) L 07/30/19 08:00 Albumin 3.4 g/dl (3.4-5.0) 07/30/19 08:00 RPR Titer Nonreactive (NONREACTIVE) 07/30/19 08:00 HIV 1&2 Antibody Screen Negative 07/30/19 08:00 HIV P24 Antigen Negative 07/30/19 08:00 lab noted Assessment: 07/31/19 09:43 alcohol withdrawal sx Plan: continue ativan detox regimen
[2019-07-31] MEDS: amLODIPine BESYLATE 10 MG TABLET (FP) PO SCH (10:15)
[2019-07-31] MEDS: PRENATAL VITAMINS W/ FOLIC ACID TABLET (FP) PO SCH (10:15)
[2019-07-31] MEDS: FLUoxetine HCL 20 MG CAPSULE (FP) PO SCH (10:15)
[2019-07-31] MEDS: AMOXICILLIN 500 MG CAPSULE (FP) PO SCH ×2 (10:15→22:10)
[2019-07-31] MEDS: NICOTINE 7 MG/24 HOURS TOPICAL PATCH TD SCH (10:16)
[2019-07-31] MEDS: hydrOXYzine PAMOATE 25 MG CAPSULE (FP) PO PRN (17:26)
[2019-07-31] MEDS: THIAMINE HCL 100 MG TABLET (FP) PO SCH (22:10)
[2019-07-31] MEDS: MIRTAZAPINE 15 MG TABLET (FP) PO SCH (23:06)
[2019-08-01] MEDS ORDERED: chlordiazePOXIDE HCL 10 MG CAPSULE PO PRN
[2019-08-01] MEDS ORDERED: chlordiazePOXIDE HCL 10 MG CAPSULE PO SCH (05:00)
[2019-08-01] MEDS: NEOMYCIN/POLYMYXN/HC OTIC SUSPENSION 10 ML BOTTLE AS SCH ×4 (06:30→23:01)
[2019-08-01] MEDS: LORazepam 1 MG TABLET PO SCH ×4 (06:30→22:12)
[2019-08-01] MEDS: PRENATAL VITAMINS W/ FOLIC ACID TABLET (FP) PO SCH (10:30)
[2019-08-01] MEDS: FLUoxetine HCL 20 MG CAPSULE (FP) PO SCH (10:30)
[2019-08-01] MEDS: NICOTINE 7 MG/24 HOURS TOPICAL PATCH TD SCH (10:31)
[2019-08-01] MEDS: AMOXICILLIN 500 MG CAPSULE (FP) PO SCH ×2 (10:31→22:12)
[2019-08-01] MEDS: amLODIPine BESYLATE 10 MG TABLET (FP) PO SCH (10:32)
--- NOTE | 2019-08-01 10:46 | PN ---
[facility] CIWA - CIWA Score Nausea/Vomitin-No Nausea/No Vomiting Muscle Tremors: 2 Anxiety: 2 Agitation: 2 Paroxysmal Sweats: 1-Minimal Palms Moist Orientation: 0-Oriented Tacttile Disturbances: 0-None Auditory Disturbances: 0-None Visual Disturbances: 0-None Headache: 0-None Present CIWA-Ar Total Score: 7 S Progress Note (SOAP) Subjective: 49 years old male admitted on 07/29/19 for alcohol withdrawal sx management treated with ativan detox regimen ate breakfast resting on bed feeling tired limited conversation with staff Objective: 08/01/19 10:45 Vital Signs Temperature 96.9 F L 08/01/19 09:09 Pulse Rate 79 08/01/19 09:09 Respiratory Rate 19 08/01/19 09:09 Blood Pressure 117/79 08/01/19 09:09 O2 Sat by Pulse Oximetry (%) Laboratory Last Values WBC 3.5 K/mm3 (4.0-10.0) L 07/30/19 08:00 RBC 4.75 M/mm3 (4.00-5.60) 07/30/19 08:00 Hgb 15.1 GM/dL (11.7-16.9) 07/30/19 08:00 Hct 45.2 % (35.4-49) 07/30/19 08:00 MCV 95.2 fl (80-96) 07/30/19 08:00 MCH 31.8 pg (25.7-33.7) 07/30/19 08:00 MCHC 33.4 g/dl (32.0-35.9) 07/30/19 08:00 RDW 14.9 % (11.9-15.9) 07/30/19 08:00 Plt Count 206 K/MM3 (134-434) D 07/30/19 08:00 MPV 9.2 fl (7.5-11.1) 07/30/19 08:00 Sodium 140 mmol/L (136-145) 07/30/19 08:00 Potassium 3.8 mmol/L (3.5-5.1) 07/30/19 08:00 Chloride 101 mmol/L (98-107) 07/30/19 08:00 Carbon Dioxide 34 mmol/L (21-32) H 07/30/19 08:00 Anion Gap 5 MMOL/L (8-16) L 07/30/19 08:00 BUN 5.0 mg/dL (7-18) L 07/30/19 08:00 Creatinine 0.7 mg/dL (0.55-1.3) 07/30/19 08:00 Est GFR (CKD-EPI)AfAm 128.43 07/30/19 08:00 Est GFR (CKD-EPI)NonAf 110.81 07/30/19 08:00 Random Glucose 82 mg/dL (74-106) 07/30/19 08:00 Calcium 9.1 mg/dL (8.5-10.1) 07/30/19 08:00 Total Bilirubin 0.9 mg/dL (0.2-1) 07/30/19 08:00 AST 14 U/L (15-37) L 07/30/19 08:00 ALT 12 U/L (13-61) L 07/30/19 08:00 Alkaline Phosphatase 76 U/L (45-117) 07/30/19 08:00 Total Protein 6.1 g/dl (6.4-8.2) L 07/30/19 08:00 Albumin 3.4 g/dl (3.4-5.0) 07/30/19 08:00 RPR Titer Nonreactive (NONREACTIVE) 07/30/19 08:00 HIV 1&2 Antibody Screen Negative 07/30/19 08:00 HIV P24 Antigen Negative 07/30/19 08:00 lab noted Assessment: 08/01/19 10:45 alcohol withdrawal sx Plan: continue ativan detox regimen
[2019-08-01] MEDS: hydrOXYzine PAMOATE 25 MG CAPSULE (FP) PO PRN ×2 (15:43→22:12)
[2019-08-01] MEDS: MIRTAZAPINE 15 MG TABLET (FP) PO SCH (22:12)
[2019-08-01] MEDS: THIAMINE HCL 100 MG TABLET (FP) PO SCH (22:12)
[2019-08-01] MEDS: MELATONIN 5 MG TABLETS PO PRN (22:13)
[2019-08-02] MEDS ORDERED: LORazepam 0.5 MG TABLET PO PRN
[2019-08-02] MEDS ORDERED: chlordiazePOXIDE HCL 10 MG CAPSULE PO ONE (05:00)
[2019-08-02] MEDS: LORazepam 0.5 MG TABLET PO SCH ×2 (05:26→10:23)
[2019-08-02] MEDS: NEOMYCIN/POLYMYXN/HC OTIC SUSPENSION 10 ML BOTTLE AS SCH (05:26)
[2019-08-02 09:22] VITALS: BP 128/91; PULSE 83; TEMP 96.3
[2019-08-02] MEDS: NICOTINE 7 MG/24 HOURS TOPICAL PATCH TD SCH (10:23)
[2019-08-02] MEDS: AMOXICILLIN 500 MG CAPSULE (FP) PO SCH (10:23)
[2019-08-02] MEDS: amLODIPine BESYLATE 10 MG TABLET (FP) PO SCH (10:23)
[2019-08-02] MEDS: PRENATAL VITAMINS W/ FOLIC ACID TABLET (FP) PO SCH (10:23)
[2019-08-02] MEDS: FLUoxetine HCL 20 MG CAPSULE (FP) PO SCH (10:23)
--- NOTE | 2019-08-02 10:33 | PN ---
[facility] CIWA - CIWA Score Nausea/Vomitin-No Nausea/No Vomiting Muscle Tremors: 1-None Visible, but [place] Anxiety: 1-Mildly Anxious Agitation: 0-Normal Activity Paroxysmal Sweats: No Perspiration Orientation: 0-Oriented Tacttile Disturbances: 0-None Auditory Disturbances: 0-None Visual Disturbances: 0-None Headache: 0-None Present CIWA-Ar Total Score: 2 BHS Progress Note (SOAP) Subjective: alert,no complaint Objective: 08/02/19 10:30 Vital Signs Temperature 96.3 F L 08/02/19 09:22 Pulse Rate 83 08/02/19 09:22 Respiratory Rate 18 08/02/19 09:22 Blood Pressure 128/91 08/02/19 09:22 O2 Sat by Pulse Oximetry (%) Laboratory Last Values WBC 3.5 K/mm3 (4.0-10.0) L 07/30/19 08:00 RBC 4.75 M/mm3 (4.00-5.60) 07/30/19 08:00 Hgb 15.1 GM/dL (11.7-16.9) 07/30/19 08:00 Hct 45.2 % (35.4-49) 07/30/19 08:00 MCV 95.2 fl (80-96) 07/30/19 08:00 MCH 31.8 pg (25.7-33.7) 07/30/19 08:00 MCHC 33.4 g/dl (32.0-35.9) 07/30/19 08:00 RDW 14.9 % (11.9-15.9) 07/30/19 08:00 Plt Count 206 K/MM3 (134-434) D 07/30/19 08:00 MPV 9.2 fl (7.5-11.1) 07/30/19 08:00 Sodium 140 mmol/L (136-145) 07/30/19 08:00 Potassium 3.8 mmol/L (3.5-5.1) 07/30/19 08:00 Chloride 101 mmol/L (98-107) 07/30/19 08:00 Carbon Dioxide 34 mmol/L (21-32) H 07/30/19 08:00 Anion Gap 5 MMOL/L (8-16) L 07/30/19 08:00 BUN 5.0 mg/dL (7-18) L 07/30/19 08:00 Creatinine 0.7 mg/dL (0.55-1.3) 07/30/19 08:00 Est GFR (CKD-EPI)AfAm 128.43 07/30/19 08:00 Est GFR (CKD-EPI)NonAf 110.81 07/30/19 08:00 Random Glucose 82 mg/dL (74-106) 07/30/19 08:00 Calcium 9.1 mg/dL (8.5-10.1) 07/30/19 08:00 Total Bilirubin 0.9 mg/dL (0.2-1) 07/30/19 08:00 AST 14 U/L (15-37) L 07/30/19 08:00 ALT 12 U/L (13-61) L 07/30/19 08:00 Alkaline Phosphatase 76 U/L (45-117) 07/30/19 08:00 Total Protein 6.1 g/dl (6.4-8.2) L 07/30/19 08:00 Albumin 3.4 g/dl (3.4-5.0) 07/30/19 08:00 RPR Titer Nonreactive (NONREACTIVE) 07/30/19 08:00 HIV 1&2 Antibody Screen Negative 07/30/19 08:00 HIV P24 Antigen Negative 07/30/19 08:00 Assessment: 08/02/19 10:31 no withdrawal symptom Plan: discharge today,follow up with after care program as arrangement and his pmd for otitis externa
--- NOTE | 2019-08-02 10:36 | DS ---
[facility] Detox Discharge Summary Admission Date: 07/29/19 Discharge Date: 08/02/19 - History Present History: Alcohol Dependence Additional Comments: stable for discharge Pertinent Past History: hypertension - Physical Exam Results Vital Signs: Vital Signs Temperature 96.3 F L 08/02/19 09:22 Pulse Rate 83 08/02/19 09:22 Respiratory Rate 18 08/02/19 09:22 Blood Pressure 128/91 08/02/19 09:22 O2 Sat by Pulse Oximetry (%) Pertinent Admission Physical Exam Findings: withdrawal signs and symptom - Treatment Hospital Course: Detox Protocol Followed, Detoxed Safely, Responded well, Discharged Condition Good Patient has Accepted a Rehab Referral to: declined - Medication Discharge Medications: Ambulatory Orders Amlodipine Besylate [Norvasc -] 10 mg PO DAILY 11/09/18 Buspirone HCl [Buspar -] 30 mg PO BID 11/09/18 Fluoxetine HCl [Prozac -] 20 mg PO DAILY 11/09/18 Trazodone HCl 150 mg PO HS 11/09/18 Clonazepam [Klonopin] 2 mg PO TID 07/29/19 Mirtazapine 15 mg PO HS 07/29/19 - Diagnosis (1) Alcohol dependence with uncomplicated withdrawal Current Visit: Yes Status: Acute (2) History of bipolar disorder Current Visit: Yes Status: Chronic (3) Nicotine dependence Current Visit: Yes Status: Chronic Qualifiers: Nicotine product type: cigarettes Substance use status: uncomplicated Qualified Code(s): F17.210 - Nicotine dependence, cigarettes, uncomplicated (4) Hypertension Current Visit: No Status: Chronic Qualifiers: Hypertension type: essential hypertension Qualified Code(s): I10 - Essential (primary) hypertension (5) Otitis externa Current Visit: Yes Status: Acute - AMA Did Patient Leave Against Medical Advice: No
[2019-08-03] MEDS ORDERED: LORazepam 0.5 MG TABLET PO ONE (05:00)
== END 2019-08-02 12:15 | disposition home or self-care (01) | DRG 775 ==
LOC: YASAS 16:31 → Y3N 20:48
PROVIDERS: ADMIT Allergy & Immunology; ATTEND Allergy & Immunology
PROC: HZ2ZZZZ Detoxification Services for Substance Abuse Treatment (ICD-10-PCS; principal; 2019-07-29)
DX: F10.230 Alcohol dependence with withdrawal, uncomplicated (principal); F17.210 Nicotine dependence, cigarettes, uncomplicated; F19.24 Other psychoactive substance dependence with psychoactive substance-induced mood disorder; F31.9 Bipolar disorder, unspecified; F43.10 Post-traumatic stress disorder, unspecified; F41.9 Anxiety disorder, unspecified; I10 Essential (primary) hypertension; G47.00 Insomnia, unspecified; H60.8X2 Other otitis externa, left ear; S09.22XD Traumatic rupture of left ear drum, subsequent encounter; X58.XXXD Exposure to other specified factors, subsequent encounter; Y93.9 Activity, unspecified; Y92.9 Unspecified place or not applicable; Y99.9 Unspecified external cause status; Z86.79 Personal history of other diseases of the circulatory system; Z91.013 Allergy to seafood; Z91.018 Allergy to other foods
CPT/HCPCS: 36415; 80053; 85027; 86593; 87389

== ENCOUNTER 2022-04-18 14:15 | Inpatient (IN) | payer OTHER ==
[2022-04-18 14:47] VITALS: BMI 24.3
[2022-04-18] MEDS ORDERED: LOPERAMIDE HCL 2 MG CAPSULE PO PRN (17:08)
[2022-04-18] MEDS ORDERED: MAGNESIUM HYDROX 2400MG/30ML ORAL SUSPENSION 30 ML CUP PO PRN (17:08)
[2022-04-18] MEDS ORDERED: diazePAM 5 MG TABLET PO PRN (17:08)
[2022-04-18] MEDS ORDERED: MAG HYDROX/AL HYDROX/SIMETH 30 ML UNIT-DOSE CUP PO PRN (17:08)
[2022-04-18] MEDS ORDERED: ACETAMINOPHEN 325 MG TABLET (FP) PO PRN ×4 (17:08→18:12)
[2022-04-18] MEDS ORDERED: MAGNESIUM CITRATE 300 ML BOTTLE PO PRN (17:08)
[2022-04-18] MEDS ORDERED: IBUPROFEN 600 MG TABLET (FP) PO PRN (17:08)
[2022-04-18] MEDS ORDERED: DICYCLOMINE HCL 10 MG CAPSULE PO PRN (17:08)
[2022-04-18] MEDS ORDERED: ONDANSETRON *ODT* 4 MG TABLET SL PRN (17:08)
[2022-04-18] MEDS ORDERED: BENZOCAINE/MENTHOL (CHLORASEPTIC ) LOZENGE MM PRN (17:08)
[2022-04-18] MEDS ORDERED: IBUPROFEN 400 MG TABLET (FP) PO PRN (17:08)
[2022-04-18] MEDS ORDERED: BISMUTH SUBSALICYLATE 524 MG/30 ML PO PRN (17:08)
[2022-04-18] MEDS ORDERED: PATIENT'S OWN MEDICATION (NON-FORMULARY) (Enalapril Maleate [Vasotec] 20 MG Tablet) PO SCH (18:00)
[2022-04-18] MEDS ORDERED: PATIENT'S OWN MEDICATION (NON-FORMULARY) (Magnesium Oxide [Magnesium] 400 MG Tablet) PO SCH (18:00)
[2022-04-18] MEDS ORDERED: oxyCODONE HCL 5 MG TABLET PO PRN ×2 (18:11→18:12)
[2022-04-18] MEDS: diazePAM 5 MG TABLET PO SCH ×2 (19:04→22:20)
[2022-04-18] MEDS: metoPROLOL SUCCINATE 25 MG TAB.SR.24H (FP) PO SCH (19:05)
[2022-04-18] MEDS: amLODIPine BESYLATE 10 MG TABLET (FP) PO SCH (19:05)
[2022-04-18] MEDS: PRENATAL VITAMINS W/ FOLIC ACID TABLET (FP) PO SCH (19:05)
[2022-04-18] MEDS: POTASSIUM CHLORIDE TABS 20 MEQ TABLET.ER (FP) PO SCH (19:05)
[2022-04-18] MEDS: FOLIC ACID 1 MG TABLET (FP) PO SCH (19:06)
[2022-04-18] MEDS: hydrOXYzine PAMOATE 25 MG CAPSULE (FP) PO SCH ×2 (19:06→22:20)
[2022-04-18] MEDS ORDERED: traZODone HCL 50 MG TABLET (FP) PO SCH (22:00)
[2022-04-18] MEDS: THIAMINE HCL 100 MG TABLET (FP) PO SCH (22:20)
[2022-04-18] MEDS: MELATONIN 5 MG TABLETS PO SCH (22:20)
[2022-04-18] MEDS: NICOTINE 10 MG CARTRIDGE (INHALER) IH PRN (22:30)
[2022-04-18] MEDS: TOPIRAMATE 25 MG TABLET PO SCH (22:51)
[2022-04-19] MEDS: diazePAM 5 MG TABLET PO SCH (05:12)
[2022-04-19] MEDS: hydrOXYzine PAMOATE 25 MG CAPSULE (FP) PO SCH ×5 (05:12→22:46)
[2022-04-19] MEDS ORDERED: chlordiazePOXIDE HCL 25 MG CAPSULE PO PRN (09:46)
[2022-04-19] MEDS: MAGNESIUM OXIDE 400 MG TABLET (FP) PO SCH (10:08)
[2022-04-19] MEDS: POTASSIUM CHLORIDE TABS 20 MEQ TABLET.ER (FP) PO SCH (10:08)
[2022-04-19] MEDS: FOLIC ACID 1 MG TABLET (FP) PO SCH (10:08)
[2022-04-19] MEDS: PRENATAL VITAMINS W/ FOLIC ACID TABLET (FP) PO SCH (10:09)
[2022-04-19] MEDS: TOPIRAMATE 25 MG TABLET PO SCH ×2 (10:09→23:16)
[2022-04-19] MEDS: FLUoxetine HCL 20 MG CAPSULE PO SCH (10:09)
[2022-04-19] MEDS: amLODIPine BESYLATE 10 MG TABLET (FP) PO SCH (10:09)
[2022-04-19] MEDS: ENALAPRIL MALEATE 10 MG TABLET PO SCH (10:09)
[2022-04-19] MEDS: metoPROLOL SUCCINATE 25 MG TAB.SR.24H (FP) PO SCH (10:09)
[2022-04-19] MEDS: chlordiazePOXIDE HCL 25 MG CAPSULE PO SCH ×3 (10:10→22:47)
[2022-04-19 11:06] LABS: HEMATOCRIT 30.9 % (35.4-49); HEMOGLOBIN 10.4 GM/dL (11.7-16.9); MCH 36.4 pg (25.7-33.7); MCHC 33.5 g/dl (32.0-35.9); MEAN CELL VOLUME 108.5 fl (80-96); MEAN PLT VOLUME 9.2 fl (7.5-11.1); PLATELET COUNT 149 10^3/uL (134-434); RBC 2.85 M/mm3 (4.00-5.60); RDW 18.4 % (11.9-15.9)
[2022-04-19 11:13] LABS: CALCIUM 8.2 mg/dL (8.5-10.1)
[2022-04-19 11:15] LABS: ALBUMIN 2.5 g/dl (3.4-5.0); BLOOD UREA NITROGEN 7.9 mg/dL (7-18)
[2022-04-19 11:17] LABS: CREATININE 0.6 mg/dL (0.55-1.3)
[2022-04-19 11:19] LABS: BILIRUBIN,TOTAL 0.9 mg/dL (0.2-1); TOT PROT 5.4 g/dl (6.4-8.2)
[2022-04-19] MEDS ORDERED: MIRTAZAPINE 15 MG TABLET (FP) ONE (20:53)
[2022-04-19] MEDS: THIAMINE HCL 100 MG TABLET (FP) PO SCH (22:46)
[2022-04-19] MEDS: MELATONIN 5 MG TABLETS PO SCH (22:46)
[2022-04-19] MEDS: MIRTAZAPINE 30 MG TABLET PO SCH (22:46)
[2022-04-19] MEDS: METHOCARBAMOL 500 MG TABLET PO PRN (22:47)
[2022-04-20] MEDS: hydrOXYzine PAMOATE 25 MG CAPSULE (FP) PO SCH ×5 (05:13→22:39)
[2022-04-20] MEDS ORDERED: diazePAM 5 MG TABLET PO SCH (06:00)
[2022-04-20] MEDS: chlordiazePOXIDE HCL 25 MG CAPSULE PO SCH ×4 (06:13→22:38)
[2022-04-20] MEDS: PRENATAL VITAMINS W/ FOLIC ACID TABLET (FP) PO SCH (10:50)
[2022-04-20] MEDS: FLUoxetine HCL 20 MG CAPSULE PO SCH (10:50)
[2022-04-20] MEDS: metoPROLOL SUCCINATE 25 MG TAB.SR.24H (FP) PO SCH (10:51)
[2022-04-20] MEDS: FOLIC ACID 1 MG TABLET (FP) PO SCH (10:51)
[2022-04-20] MEDS: amLODIPine BESYLATE 10 MG TABLET (FP) PO SCH (10:51)
[2022-04-20] MEDS: POTASSIUM CHLORIDE TABS 20 MEQ TABLET.ER (FP) PO SCH (10:51)
[2022-04-20] MEDS: ENALAPRIL MALEATE 10 MG TABLET PO SCH (10:51)
[2022-04-20] MEDS: NICOTINE 10 MG CARTRIDGE (INHALER) IH PRN (10:54)
[2022-04-20] MEDS: TOPIRAMATE 25 MG TABLET PO SCH ×2 (12:28→22:39)
[2022-04-20] MEDS: MAGNESIUM OXIDE 400 MG TABLET (FP) PO SCH (12:28)
[2022-04-20] MEDS: MIRTAZAPINE 30 MG TABLET PO SCH (22:39)
[2022-04-20] MEDS: MELATONIN 5 MG TABLETS PO SCH (22:39)
[2022-04-20] MEDS: THIAMINE HCL 100 MG TABLET (FP) PO SCH (22:39)
[2022-04-20] MEDS: METHYL SALICYLATE/MENTHOL OINT 30 GM TUBE TP SCH (22:53)
[2022-04-21] MEDS: hydrOXYzine PAMOATE 25 MG CAPSULE (FP) PO SCH ×5 (05:28→22:21)
[2022-04-21] MEDS: chlordiazePOXIDE HCL 25 MG CAPSULE PO SCH ×4 (05:28→22:21)
[2022-04-21] MEDS ORDERED: diazePAM 5 MG TABLET PO SCH (06:00)
[2022-04-21] MEDS: metoPROLOL SUCCINATE 25 MG TAB.SR.24H (FP) PO SCH (10:38)
[2022-04-21] MEDS: PRENATAL VITAMINS W/ FOLIC ACID TABLET (FP) PO SCH (10:38)
[2022-04-21] MEDS: ENALAPRIL MALEATE 10 MG TABLET PO SCH (10:39)
[2022-04-21] MEDS: FLUoxetine HCL 20 MG CAPSULE PO SCH (10:39)
[2022-04-21] MEDS: MAGNESIUM OXIDE 400 MG TABLET (FP) PO SCH (10:39)
[2022-04-21] MEDS: POTASSIUM CHLORIDE TABS 20 MEQ TABLET.ER (FP) PO SCH (10:39)
[2022-04-21] MEDS: TOPIRAMATE 25 MG TABLET PO SCH ×2 (10:39→22:21)
[2022-04-21] MEDS: amLODIPine BESYLATE 10 MG TABLET (FP) PO SCH (10:39)
[2022-04-21] MEDS: FOLIC ACID 1 MG TABLET (FP) PO SCH (10:39)
[2022-04-21] MEDS: METHYL SALICYLATE/MENTHOL OINT 30 GM TUBE TP SCH ×2 (10:42→22:21)
[2022-04-21] MEDS: NICOTINE 10 MG CARTRIDGE (INHALER) IH PRN (10:43)
[2022-04-21 11:59] LABS: HEMATOCRIT 31.6 % (35.4-49); HEMOGLOBIN 10.7 GM/dL (11.7-16.9); MCH 37.1 pg (25.7-33.7); MCHC 33.8 g/dl (32.0-35.9); MEAN CELL VOLUME 109.7 fl (80-96); MEAN PLT VOLUME 9.6 fl (7.5-11.1); PLATELET COUNT 154 10^3/uL (134-434); RBC 2.88 M/mm3 (4.00-5.60); RDW 18.3 % (11.9-15.9); WHITE BLOOD COUNT 6.6 K/mm3 (4.0-10.0)
[2022-04-21 12:15] LABS: CALCIUM 8.3 mg/dL (8.5-10.1)
[2022-04-21 12:17] LABS: ALBUMIN 2.5 g/dl (3.4-5.0); BLOOD UREA NITROGEN 6.5 mg/dL (7-18)
[2022-04-21 12:19] LABS: CREATININE 0.4 mg/dL (0.55-1.3)
[2022-04-21 12:21] LABS: BILIRUBIN,TOTAL 0.4 mg/dL (0.2-1); TOT PROT 5.6 g/dl (6.4-8.2)
[2022-04-21] MEDS: MELATONIN 5 MG TABLETS PO SCH (22:20)
[2022-04-21] MEDS: MIRTAZAPINE 30 MG TABLET PO SCH (22:21)
[2022-04-21] MEDS: THIAMINE HCL 100 MG TABLET (FP) PO SCH (22:21)
[2022-04-22] MEDS ORDERED: chlordiazePOXIDE HCL 10 MG CAPSULE PO PRN
[2022-04-22] MEDS: chlordiazePOXIDE HCL 10 MG CAPSULE PO SCH ×4 (05:40→22:20)
[2022-04-22] MEDS: hydrOXYzine PAMOATE 25 MG CAPSULE (FP) PO SCH ×5 (05:41→22:21)
[2022-04-22] MEDS ORDERED: diazePAM 5 MG TABLET PO ONE (06:00)
[2022-04-22] MEDS: METHYL SALICYLATE/MENTHOL OINT 30 GM TUBE TP SCH ×2 (11:00→22:23)
[2022-04-22] MEDS: PRENATAL VITAMINS W/ FOLIC ACID TABLET (FP) PO SCH (11:00)
[2022-04-22] MEDS: FLUoxetine HCL 20 MG CAPSULE PO SCH (11:00)
[2022-04-22] MEDS: POTASSIUM CHLORIDE TABS 20 MEQ TABLET.ER (FP) PO SCH (11:01)
[2022-04-22] MEDS: amLODIPine BESYLATE 10 MG TABLET (FP) PO SCH (11:01)
[2022-04-22] MEDS: ENALAPRIL MALEATE 10 MG TABLET PO SCH (11:01)
[2022-04-22] MEDS: FOLIC ACID 1 MG TABLET (FP) PO SCH (11:01)
[2022-04-22] MEDS: metoPROLOL SUCCINATE 25 MG TAB.SR.24H (FP) PO SCH (11:02)
[2022-04-22] MEDS: TOPIRAMATE 25 MG TABLET PO SCH ×2 (11:02→22:21)
[2022-04-22] MEDS: MAGNESIUM OXIDE 400 MG TABLET (FP) PO SCH (12:09)
[2022-04-22] MEDS: MIRTAZAPINE 30 MG TABLET PO SCH (22:21)
[2022-04-22] MEDS: THIAMINE HCL 100 MG TABLET (FP) PO SCH (22:21)
[2022-04-22] MEDS: MELATONIN 5 MG TABLETS PO SCH (22:21)
[2022-04-23] MEDS: chlordiazePOXIDE HCL 10 MG CAPSULE PO SCH ×2 (05:23→17:45)
[2022-04-23] MEDS: hydrOXYzine PAMOATE 25 MG CAPSULE (FP) PO SCH ×5 (05:23→22:33)
[2022-04-23] MEDS: ENALAPRIL MALEATE 10 MG TABLET PO SCH (10:23)
[2022-04-23] MEDS: metoPROLOL SUCCINATE 25 MG TAB.SR.24H (FP) PO SCH (10:23)
[2022-04-23] MEDS: METHYL SALICYLATE/MENTHOL OINT 30 GM TUBE TP SCH ×2 (10:24→22:34)
[2022-04-23] MEDS: POTASSIUM CHLORIDE TABS 20 MEQ TABLET.ER (FP) PO SCH (10:24)
[2022-04-23] MEDS: FLUoxetine HCL 20 MG CAPSULE PO SCH (10:24)
[2022-04-23] MEDS: amLODIPine BESYLATE 10 MG TABLET (FP) PO SCH (10:24)
[2022-04-23] MEDS: FOLIC ACID 1 MG TABLET (FP) PO SCH (10:25)
[2022-04-23] MEDS: TOPIRAMATE 25 MG TABLET PO SCH ×2 (10:26→22:33)
[2022-04-23] MEDS: PRENATAL VITAMINS W/ FOLIC ACID TABLET (FP) PO SCH (10:26)
[2022-04-23] MEDS: MAGNESIUM OXIDE 400 MG TABLET (FP) PO SCH (10:26)
[2022-04-23] MEDS: METHOCARBAMOL 500 MG TABLET PO PRN (10:28)
[2022-04-23 17:10] VITALS: RESP 18
[2022-04-23] MEDS ORDERED: MIRTAZAPINE 15 MG TABLET (FP) ONE (21:13)
[2022-04-23] MEDS: MELATONIN 5 MG TABLETS PO SCH (22:33)
[2022-04-23] MEDS: THIAMINE HCL 100 MG TABLET (FP) PO SCH (22:33)
[2022-04-23] MEDS: MIRTAZAPINE 30 MG TABLET PO SCH (22:34)
[2022-04-24] MEDS ORDERED: chlordiazePOXIDE HCL 10 MG CAPSULE PO ONE (05:00)
[2022-04-24 06:40] VITALS: BP 116/86; PULSE 90; TEMP 97.1
[2022-04-24] MEDS: hydrOXYzine PAMOATE 25 MG CAPSULE (FP) PO SCH ×2 (06:56→10:22)
[2022-04-24] MEDS: metoPROLOL SUCCINATE 25 MG TAB.SR.24H (FP) PO SCH (10:18)
[2022-04-24] MEDS: MAGNESIUM OXIDE 400 MG TABLET (FP) PO SCH (10:18)
[2022-04-24] MEDS: PRENATAL VITAMINS W/ FOLIC ACID TABLET (FP) PO SCH (10:18)
[2022-04-24] MEDS: TOPIRAMATE 25 MG TABLET PO SCH (10:21)
[2022-04-24] MEDS: FOLIC ACID 1 MG TABLET (FP) PO SCH (10:21)
[2022-04-24] MEDS: FLUoxetine HCL 20 MG CAPSULE PO SCH (10:22)
[2022-04-24] MEDS: POTASSIUM CHLORIDE TABS 20 MEQ TABLET.ER (FP) PO SCH (10:23)
[2022-04-24] MEDS: METHYL SALICYLATE/MENTHOL OINT 30 GM TUBE TP SCH (10:23)
[2022-04-24] MEDS: amLODIPine BESYLATE 10 MG TABLET (FP) PO SCH (10:23)
== END 2022-04-24 11:21 | disposition home or self-care (01) | DRG 775 ==
LOC: YASAS 14:15 → Y3N 16:53
PROVIDERS: ADMIT Allergy & Immunology; ATTEND Surgery
PROC: HZ2ZZZZ Detoxification Services for Substance Abuse Treatment (ICD-10-PCS; principal; 2022-04-18)
DX: F10.230 Alcohol dependence with withdrawal, uncomplicated (principal); F17.210 Nicotine dependence, cigarettes, uncomplicated; F10.282 Alcohol dependence with alcohol-induced sleep disorder; F19.24 Other psychoactive substance dependence with psychoactive substance-induced mood disorder; F31.9 Bipolar disorder, unspecified; F41.9 Anxiety disorder, unspecified; F43.10 Post-traumatic stress disorder, unspecified; I10 Essential (primary) hypertension; M19.042 Primary osteoarthritis, left hand; R00.0 Tachycardia, unspecified; Z86.69 Personal history of other diseases of the nervous system and sense organs; Z91.011 Allergy to milk products; Z91.013 Allergy to seafood; Z91.014 Allergy to mammalian meats
CPT/HCPCS: 36415; 73140-TC-LT-FY; 80053; 85027; 86780; 87811; C9803-CS; Q0162; U0003; U0005

== ENCOUNTER 2022-09-28 16:11 | Inpatient (IN) | payer OTHER ==
[2022-09-28 17:01] VITALS: BMI 24.3
[2022-09-28] MEDS ORDERED: ONDANSETRON *ODT* 4 MG TABLET SL PRN (17:46)
[2022-09-28] MEDS ORDERED: DICYCLOMINE HCL 10 MG CAPSULE PO PRN (17:46)
[2022-09-28] MEDS ORDERED: ACETAMINOPHEN 325 MG TABLET (FP) PO PRN ×2 (17:46)
[2022-09-28] MEDS ORDERED: MAGNESIUM HYDROX 2400MG/30ML ORAL SUSPENSION 30 ML CUP PO PRN (17:46)
[2022-09-28] MEDS ORDERED: POLYETHYLENE GLYCOL (HEALTHYLAX) 3350 17 GM PACKET PO PRN (17:46)
[2022-09-28] MEDS ORDERED: BISMUTH SUBSALICYLATE 524 MG/30 ML PO PRN (17:46)
[2022-09-28] MEDS ORDERED: BENZOCAINE/MENTHOL (CHLORASEPTIC ) LOZENGE MM PRN (17:46)
[2022-09-28] MEDS ORDERED: METHOCARBAMOL 500 MG TABLET PO PRN (17:46)
[2022-09-28] MEDS ORDERED: MAG HYDROX/AL HYDROX/SIMETH 30 ML UNIT-DOSE CUP PO PRN (17:46)
[2022-09-28] MEDS ORDERED: LOPERAMIDE HCL 2 MG CAPSULE PO PRN (17:46)
[2022-09-28] MEDS ORDERED: IBUPROFEN 400 MG TABLET (FP) PO PRN (17:46)
[2022-09-28] MEDS ORDERED: NALOXONE HCL (KLOXXADO) 8 MG SPRAY NS PRN (17:46)
[2022-09-28] MEDS ORDERED: chlordiazePOXIDE HCL 25 MG CAPSULE PO PRN (17:48)
[2022-09-28] MEDS ORDERED: FOLIC ACID 1 MG TABLET (FP) PO SCH (18:15)
[2022-09-28] MEDS ORDERED: POTASSIUM CHLORIDE TABS 20 MEQ TABLET.ER (FP) PO SCH (18:15)
[2022-09-28] MEDS ORDERED: ENALAPRIL MALEATE 10 MG TABLET PO SCH (18:15)
[2022-09-28] MEDS ORDERED: amLODIPine BESYLATE 5 MG TABLET (FP) PO SCH (18:15)
[2022-09-28] MEDS ORDERED: amLODIPine BESYLATE 10 MG TABLET (FP) PO SCH (18:58)
[2022-09-28] MEDS: chlordiazePOXIDE HCL 25 MG CAPSULE PO SCH ×2 (19:17→22:11)
[2022-09-28] MEDS: POTASSIUM CHLORIDE TABS 20 MEQ TABLET.ER (FP) PO SCH (19:24)
[2022-09-28] MEDS: IBUPROFEN 600 MG TABLET (FP) PO PRN (19:24)
[2022-09-28] MEDS ORDERED: busPIRone HCL 5 MG TABLET PO ONE (19:30)
[2022-09-28] MEDS: ENALAPRIL MALEATE 10 MG TABLET PO SCH (19:39)
[2022-09-28] MEDS: amLODIPine BESYLATE 10 MG TABLET (FP) PO SCH (19:43)
[2022-09-28] MEDS: metoPROLOL SUCCINATE 25 MG TAB.SR.24H (FP) PO SCH (20:04)
[2022-09-28] MEDS: FOLIC ACID 1 MG TABLET (FP) PO SCH (20:04)
[2022-09-28] MEDS ORDERED: MELATONIN 5 MG TABLETS PO SCH (22:00)
[2022-09-28] MEDS: THIAMINE HCL 100 MG TABLET (FP) PO SCH (22:10)
[2022-09-28] MEDS: TOPIRAMATE 25 MG TABLET PO SCH (22:39)
[2022-09-29] MEDS: chlordiazePOXIDE HCL 25 MG CAPSULE PO SCH ×4 (05:26→22:02)
[2022-09-29] MEDS ORDERED: MIRTAZAPINE 15 MG TABLET (FP) PO SCH (10:00)
[2022-09-29] MEDS: POTASSIUM CHLORIDE TABS 20 MEQ TABLET.ER (FP) PO SCH (10:45)
[2022-09-29] MEDS: FLUoxetine HCL 20 MG CAPSULE PO SCH (10:50)
[2022-09-29] MEDS: FOLIC ACID 1 MG TABLET (FP) PO SCH (10:55)
[2022-09-29] MEDS: TOPIRAMATE 25 MG TABLET PO SCH ×2 (10:58→21:59)
[2022-09-29] MEDS: amLODIPine BESYLATE 10 MG TABLET (FP) PO SCH (10:58)
[2022-09-29] MEDS: ENALAPRIL MALEATE 10 MG TABLET PO SCH (10:58)
[2022-09-29] MEDS: metoPROLOL SUCCINATE 25 MG TAB.SR.24H (FP) PO SCH (10:58)
[2022-09-29 12:20] LABS: HEMATOCRIT 37.2 % (35.4-49); HEMOGLOBIN 12.2 GM/dL (11.7-16.9); MCH 34.7 pg (25.7-33.7); MCHC 32.9 g/dl (32.0-35.9); MEAN CELL VOLUME 105.6 fl (80-96); MEAN PLT VOLUME 9.7 fl (7.5-11.1); PLATELET COUNT 115 10^3/uL (134-434); RBC 3.53 M/mm3 (4.00-5.60); RDW 17.2 % (11.9-15.9); WHITE BLOOD COUNT 3.1 K/mm3 (4.0-10.0)
[2022-09-29 12:49] LABS: BLOOD UREA NITROGEN 6.7 mg/dL (7-18); CALCIUM 8.3 mg/dL (8.5-10.1)
[2022-09-29 12:50] LABS: ALBUMIN 2.9 g/dl (3.4-5.0)
[2022-09-29 12:53] LABS: CREATININE 0.5 mg/dL (0.55-1.3)
[2022-09-29 12:54] LABS: BILIRUBIN,TOTAL 0.8 mg/dL (0.2-1); TOT PROT 5.9 g/dl (6.4-8.2)
[2022-09-29] MEDS ORDERED: SUVOREXANT 10 MG TABLET PO PRN (22:00)
[2022-09-29] MEDS: THIAMINE HCL 100 MG TABLET (FP) PO SCH (22:00)
[2022-09-29] MEDS: MIRTAZAPINE 15 MG TABLET (FP) PO SCH (22:02)
[2022-09-29] MEDS: traZODone HCL 100 MG TABLET (FP) PO SCH (22:02)
[2022-09-30] MEDS: chlordiazePOXIDE HCL 25 MG CAPSULE PO SCH ×4 (06:06→22:23)
[2022-09-30] MEDS: amLODIPine BESYLATE 10 MG TABLET (FP) PO SCH (10:23)
[2022-09-30] MEDS: ENALAPRIL MALEATE 10 MG TABLET PO SCH (10:23)
[2022-09-30] MEDS: metoPROLOL SUCCINATE 25 MG TAB.SR.24H (FP) PO SCH (10:24)
[2022-09-30] MEDS: FOLIC ACID 1 MG TABLET (FP) PO SCH (10:24)
[2022-09-30] MEDS: FLUoxetine HCL 20 MG CAPSULE PO SCH (10:24)
[2022-09-30] MEDS: TOPIRAMATE 25 MG TABLET PO SCH ×2 (10:28→22:23)
[2022-09-30] MEDS: POTASSIUM CHLORIDE TABS 20 MEQ TABLET.ER (FP) PO SCH (10:29)
[2022-09-30] MEDS ORDERED: POTASSIUM CHLORIDE ORAL LIQUID 20 MEQ/15 ML PO ONE (15:00)
[2022-09-30] MEDS: IBUPROFEN 600 MG TABLET (FP) PO PRN (18:11)
[2022-09-30] MEDS: traZODone HCL 100 MG TABLET (FP) PO SCH (22:22)
[2022-09-30] MEDS: THIAMINE HCL 100 MG TABLET (FP) PO SCH (22:23)
[2022-09-30] MEDS: MIRTAZAPINE 15 MG TABLET (FP) PO SCH (22:23)
[2022-10-01] MEDS ORDERED: chlordiazePOXIDE HCL 10 MG CAPSULE PO PRN
[2022-10-01] MEDS: chlordiazePOXIDE HCL 10 MG CAPSULE PO SCH ×4 (05:42→22:11)
[2022-10-01] MEDS: NICOTINE 10 MG CARTRIDGE (INHALER) IH PRN ×2 (05:44→20:06)
[2022-10-01] MEDS: POTASSIUM CHLORIDE TABS 20 MEQ TABLET.ER (FP) PO SCH (10:50)
[2022-10-01] MEDS: metoPROLOL SUCCINATE 25 MG TAB.SR.24H (FP) PO SCH (10:50)
[2022-10-01] MEDS: FLUoxetine HCL 20 MG CAPSULE PO SCH (10:50)
[2022-10-01] MEDS: amLODIPine BESYLATE 10 MG TABLET (FP) PO SCH (10:51)
[2022-10-01] MEDS: FOLIC ACID 1 MG TABLET (FP) PO SCH (10:51)
[2022-10-01] MEDS: TOPIRAMATE 25 MG TABLET PO SCH ×2 (10:51→22:10)
[2022-10-01] MEDS: ENALAPRIL MALEATE 10 MG TABLET PO SCH (10:54)
[2022-10-01] MEDS: MIRTAZAPINE 15 MG TABLET (FP) PO SCH (22:10)
[2022-10-01] MEDS: traZODone HCL 100 MG TABLET (FP) PO SCH (22:10)
[2022-10-01] MEDS: THIAMINE HCL 100 MG TABLET (FP) PO SCH (22:10)
[2022-10-02] MEDS: chlordiazePOXIDE HCL 10 MG CAPSULE PO SCH ×2 (05:58→18:00)
[2022-10-02] MEDS: amLODIPine BESYLATE 10 MG TABLET (FP) PO SCH (10:06)
[2022-10-02] MEDS: metoPROLOL SUCCINATE 25 MG TAB.SR.24H (FP) PO SCH (10:07)
[2022-10-02] MEDS: FOLIC ACID 1 MG TABLET (FP) PO SCH (10:07)
[2022-10-02] MEDS: ENALAPRIL MALEATE 10 MG TABLET PO SCH (10:07)
[2022-10-02] MEDS: POTASSIUM CHLORIDE TABS 20 MEQ TABLET.ER (FP) PO SCH (10:08)
[2022-10-02] MEDS: FLUoxetine HCL 20 MG CAPSULE PO SCH (10:08)
[2022-10-02] MEDS: TOPIRAMATE 25 MG TABLET PO SCH ×2 (10:09→22:16)
[2022-10-02] MEDS: THIAMINE HCL 100 MG TABLET (FP) PO SCH (22:16)
[2022-10-02] MEDS: MIRTAZAPINE 15 MG TABLET (FP) PO SCH (22:16)
[2022-10-02] MEDS: traZODone HCL 100 MG TABLET (FP) PO SCH (22:16)
[2022-10-03] MEDS ORDERED: chlordiazePOXIDE HCL 10 MG CAPSULE PO ONE (05:00)
[2022-10-03 09:24] VITALS: RESP 18
[2022-10-03] MEDS: FOLIC ACID 1 MG TABLET (FP) PO SCH (10:17)
[2022-10-03] MEDS: ENALAPRIL MALEATE 10 MG TABLET PO SCH (10:17)
[2022-10-03] MEDS: metoPROLOL SUCCINATE 25 MG TAB.SR.24H (FP) PO SCH (10:18)
[2022-10-03] MEDS: POTASSIUM CHLORIDE TABS 20 MEQ TABLET.ER (FP) PO SCH (10:18)
[2022-10-03] MEDS: amLODIPine BESYLATE 10 MG TABLET (FP) PO SCH (10:18)
[2022-10-03] MEDS: FLUoxetine HCL 20 MG CAPSULE PO SCH (10:18)
[2022-10-03] MEDS: TOPIRAMATE 25 MG TABLET PO SCH (10:19)
[2022-10-03 13:04] VITALS: BP 97/72; PULSE 104; TEMP 96.9
== END 2022-10-03 13:11 | disposition home or self-care (01) | DRG 775 ==
LOC: YASAS 16:11 → Y6N 18:54 → Y3N 09-29 10:19
PROVIDERS: ADMIT Allergy & Immunology; ATTEND Surgery
PROC: HZ2ZZZZ Detoxification Services for Substance Abuse Treatment (ICD-10-PCS; principal; 2022-09-28)
DX: F10.230 Alcohol dependence with withdrawal, uncomplicated (principal); F17.210 Nicotine dependence, cigarettes, uncomplicated; F31.9 Bipolar disorder, unspecified; F41.9 Anxiety disorder, unspecified; F32.9 Major depressive disorder, single episode, unspecified; F43.10 Post-traumatic stress disorder, unspecified; F90.9 Attention-deficit hyperactivity disorder, unspecified type; E87.6 Hypokalemia; E78.2 Mixed hyperlipidemia; I10 Essential (primary) hypertension; Z91.010 Allergy to peanuts; Z91.013 Allergy to seafood; Z91.018 Allergy to other foods
CPT/HCPCS: 36415; 80053; 84132; 85027; 86780; C9803-CS; U0003; U0005

== ENCOUNTER 2024-10-22 11:51 | Inpatient (IN) | payer OTHER ==
[2024-10-22 12:24] VITALS: BMI 27.4
[2024-10-22] MEDS ORDERED: MAGNESIUM HYDROX 2400MG/30ML ORAL SUSPENSION 30 ML CUP PO PRN (12:44)
[2024-10-22] MEDS ORDERED: guaiFENesin 600 MG TABLET.ER (FP) PO PRN (12:44)
[2024-10-22] MEDS ORDERED: IBUPROFEN 400 MG TABLET (FP) PO PRN (12:44)
[2024-10-22] MEDS ORDERED: BENZONATATE 200 MG CAPSULE PO PRN (12:44)
[2024-10-22] MEDS ORDERED: NICOTINE POLACRILEX 2 MG LOZENGE BC PRN (12:44)
[2024-10-22] MEDS ORDERED: DICYCLOMINE HCL 10 MG CAPSULE PO PRN (12:44)
[2024-10-22] MEDS ORDERED: ACETAMINOPHEN 325 MG TABLET (FP) PO PRN (12:44)
[2024-10-22] MEDS ORDERED: NICOTINE POLACRILEX 2 MG GUM BUC PRN (12:44)
[2024-10-22] MEDS ORDERED: BENZOCAINE/MENTHOL (CHLORASEPTIC ) LOZENGE MM PRN (12:44)
[2024-10-22] MEDS ORDERED: NALOXONE (NARCAN) HCL 4 MG/0.1 ML SPRAY NS PRN (12:44)
[2024-10-22] MEDS ORDERED: METOPROLOL TARTRATE 25 MG TABLET (FP) ONE (13:43)
[2024-10-22] MEDS ORDERED: levETIRAcetam 500 MG TABLET (FP) PO ONE (13:43)
[2024-10-22] MEDS ORDERED: chlordiazePOXIDE HCL 25 MG CAPSULE ONE (13:43)
[2024-10-22] MEDS: levETIRAcetam 500 MG TABLET (FP) PO SCH (13:45)
[2024-10-22] MEDS: chlordiazePOXIDE HCL 25 MG CAPSULE PO ONE (13:45)
[2024-10-22] MEDS: METOPROLOL TARTRATE 25 MG TABLET (FP) PO ONE (13:45)
[2024-10-22] MEDS: chlordiazePOXIDE HCL 25 MG CAPSULE PO SCH (17:21)
[2024-10-22] MEDS: METHOCARBAMOL 500 MG TABLET PO PRN (17:21)
[2024-10-22] MEDS: BISMUTH SUBSALICYLATE 262 MG/15 ML BTL PO PRN (18:30)
[2024-10-22] MEDS: MELATONIN 5 MG TABLETS PO SCH (22:15)
[2024-10-22] MEDS: THIAMINE 100 MG TABLET PO SCH (22:16)
[2024-10-22] MEDS: metoPROLOL SUCCINATE 25 MG TAB.SR.24H (FP) PO SCH (22:16)
[2024-10-22] MEDS: amLODIPine BESYLATE 10 MG TABLET (FP) PO SCH (22:16)
[2024-10-23] MEDS: FOLIC ACID 1 MG TABLET (FP) PO SCH (10:31)
[2024-10-23] MEDS: PRENATAL VITAMINS W/ FOLIC ACID TABLET (FP) PO SCH (10:31)
[2024-10-23] MEDS: MAGNESIUM OXIDE 400 MG TABLET (FP) PO SCH (10:32)
[2024-10-23] MEDS: POTASSIUM CHLORIDE TABS 20 MEQ TABLET.ER (FP) PO SCH (10:32)
[2024-10-23] MEDS: ENALAPRIL MALEATE 10 MG TABLET PO SCH (10:32)
[2024-10-23] MEDS: ONDANSETRON *ODT* 4 MG TABLET SL PRN (10:37)
[2024-10-23] MEDS: LOPERAMIDE HCL 2 MG CAPSULE PO PRN (10:37)
[2024-10-23 11:11] LABS: POTASSIUM 3.9 mmol/L (3.5-5.1)
[2024-10-23 11:12] LABS: HEMATOCRIT 35.6 % (35.4-49); HEMOGLOBIN 11.5 GM/dL (11.7-16.9); MCH 32.8 pg (25.7-33.7); MCHC 32.3 g/dl (32.0-35.9); MEAN CELL VOLUME 101.7 fl (80-96); MEAN PLT VOLUME 9.8 fl (7.5-11.1); RDW 19.3 % (11.9-15.9); WHITE BLOOD COUNT 9.5 K/mm3 (4.0-10.0)
[2024-10-23 11:18] LABS: ALBUMIN 2.7 g/dl (3.4-5.0); BLOOD UREA NITROGEN 4.1 mg/dL (7-18); CALCIUM 8.3 mg/dL (8.5-10.1)
[2024-10-23 11:22] LABS: CREATININE 0.7 mg/dL (0.55-1.3)
[2024-10-23 11:23] LABS: BILIRUBIN,TOTAL 1.1 mg/dL (0.2-1); TOT PROT 6.1 g/dl (6.4-8.2)
[2024-10-23 11:48] LABS: PLATELET COUNT 27 10^3/uL (134-434)
[2024-10-23] MEDS: FLUoxetine HCL 20 MG CAPSULE PO SCH (12:00)
[2024-10-23] MEDS: NALTREXONE HCL 50 MG TABLET PO SCH (12:00)
[2024-10-23] MEDS: MIRTAZAPINE 15 MG TABLET (FP) PO SCH (12:00)
[2024-10-23] MEDS: IBUPROFEN 600 MG TABLET (FP) PO PRN (12:03)
[2024-10-23] MEDS: MAG HYDROX/AL HYDROX/SIMETH 30 ML UNIT-DOSE CUP PO PRN (12:03)
[2024-10-23] MEDS: GABAPENTIN 100 MG CAPSULE PO SCH (14:50)
[2024-10-23] MEDS: DIPHENOXYLATE 2.5/ATROPINE.025 1 COMBO TABLET PO ONE (15:50)
[2024-10-23] MEDS: NICOTINE 21 MG/24 HOURS TOPICAL PATCH TD SCH (15:51)
[2024-10-23] MEDS ORDERED: traZODone HCL 150 MG TABLET PO SCH (22:00)
[2024-10-23] MEDS: traZODone HCL 50 MG TABLET (FP) PO SCH (22:17)
[2024-10-24] MEDS: chlordiazePOXIDE HCL 25 MG CAPSULE PO SCH (05:45)
[2024-10-24] MEDS: GABAPENTIN 100 MG CAPSULE PO SCH (06:17)
[2024-10-24] MEDS: chlordiazePOXIDE HCL 25 MG CAPSULE PO PRN (17:26)
[2024-10-24] MEDS: POLYETHYLENE GLYCOL (HEALTHYLAX) 3350 17 GM PACKET PO PRN (19:15)
[2024-10-25] MEDS ORDERED: chlordiazePOXIDE HCL 10 MG CAPSULE PO PRN
[2024-10-25] MEDS: chlordiazePOXIDE HCL 10 MG CAPSULE PO SCH (05:59)
[2024-10-25] MEDS: GABAPENTIN 300 MG CAPSULE PO SCH (06:25)
[2024-10-26] MEDS: chlordiazePOXIDE HCL 10 MG CAPSULE PO SCH (06:00)
[2024-10-27] MEDS: chlordiazePOXIDE HCL 10 MG CAPSULE PO ONE (06:00)
[2024-10-27 09:17] VITALS: BP 104/70; PULSE 71; RESP 16; TEMP 97.9
[2024-10-27] MEDS: ENALAPRIL MALEATE 10 MG TABLET PO SCH (09:33)
== END 2024-10-27 11:04 | disposition home or self-care (01) | DRG 775 ==
LOC: YASAS 11:51 → Y6N 13:32
PROVIDERS: ADMIT Allergy & Immunology; ATTEND Allergy & Immunology
PROC: HZ2ZZZZ Detoxification Services for Substance Abuse Treatment (ICD-10-PCS; principal; 2024-10-22)
DX: F10.230 Alcohol dependence with withdrawal, uncomplicated (principal); F17.210 Nicotine dependence, cigarettes, uncomplicated; F10.282 Alcohol dependence with alcohol-induced sleep disorder; F10.280 Alcohol dependence with alcohol-induced anxiety disorder; F10.24 Alcohol dependence with alcohol-induced mood disorder; F41.9 Anxiety disorder, unspecified; F43.10 Post-traumatic stress disorder, unspecified; F32.9 Major depressive disorder, single episode, unspecified; F90.9 Attention-deficit hyperactivity disorder, unspecified type; I10 Essential (primary) hypertension; H91.92 Unspecified hearing loss, left ear; E78.2 Mixed hyperlipidemia; Z86.69 Personal history of other diseases of the nervous system and sense organs; Z62.810 Personal history of physical and sexual abuse in childhood
CPT/HCPCS: 36415; 80053; 80177; 80305; 80307; 85027; 86780; 93005; 93010; Q0162